=== PATIENT | male | born 1975 | race African-American/Black ===

== ENCOUNTER 2017-09-03 01:14 | Emergency (ER) | payer SELFPAY ==
--- NOTE | 2017-09-03 01:45 | PDOC ---
History of Present Illness - General Chief Complaint: Pain Stated Complaint: PAIN,RT LEG Time Seen by Provider: 09/03/17 01:44 - History of Present Illness Initial Comments: 41 year old recently incarcerated male with PMH of SLE and HTN presenting with 3 weeks of right lower back pain radiating down to his calf. States that he started having some right lower paraspinal and right buttox pain that began to worsen and radiate down the back of his leg when walking for extended periods of time. He came in tonight because his friend saw him limping slightly and told him that "you need to get checked out, man" so it dawned upon him to seek medical care. Denies any recent trauma to the area. Denies fevers, chills, nausea, vomiting, diarrhea, constipation, bowel/ bladder incontinence, or other symptoms. Of note he is intermittently compliant with his lupus and anti-htn medications and states he hasn't seen his physicians since being released from nursing home. States he was drinking EtOH and smoking "cigarettes only" (obviously smells of EtoH and marijuana) prior to his arrival. 09/03/17 02:22 Past History - Past Medical History Allergies/Adverse Reactions: Allergies Allergy/AdvReac Type Severity Reaction Status Date / Time lisinopril Allergy Verified 09/03/17 01:30 Home Medications: Ambulatory Orders NK [No Known Home Medication] 06/29/15 COPD: No HTN: Yes Other medical history: lupus - Suicide/Smoking/Psychosocial Hx Smoking History: Current every day smoker Information on smoking cessation initiated: No Hx Alcohol Use: No Drug/Substance Use Hx: Yes Substance Use Type: Marijuana Review of Systems - Review of Systems Constitutional: No: Chills, Diaphoresis, Fever HEENTM: No: Blurred Vision, Tearing Respiratory: No: Cough, Shortness of Breath, Wheezing Cardiac (ROS): No: Chest Pain, Irregular Heart Rate, Syncope ABD/GI: No: Abdominal Distended, Constipated, Diarrhea, Nausea, Vomiting : No: Dysuria, Discharge, Frequency Musculoskeletal: Yes: Back Pain, Muscle Pain. No: Gout, Joint Pain, Muscle Weakness, Neck Pain Integumentary: No: Lesions, Lumps, Pallor Neurological: No: Headache, Numbness, Paresthesia Psychiatric: No: Anxiety, Depression *Physical Exam - Vital Signs Last Vital Signs Temp Pulse Resp BP Pulse Ox 98 F 76 16 166/100 97 09/03/17 01:25 09/03/17 01:25 09/03/17 01:25 09/03/17 01:25 09/03/17 01:25 - Physical Exam General Appearance: Yes: Nourished, Appropriately Dressed, Alcohol on Breath, Other (Strong marijuana odor.). No: Apparent Distress HEENT: positive: EOMI, JOSE, Normal ENT Inspection, Normal Voice Neck: positive: Trachea midline, Normal Thyroid, Supple. negative: Tender, Rigid Respiratory/Chest: positive: Lungs Clear, Normal Breath Sounds. negative: Chest Tender, Respiratory Distress, Accessory Muscle Use Cardiovascular: positive: Regular Rhythm, Regular Rate Gastrointestinal/Abdominal: positive: Normal Bowel Sounds, Flat, Soft. negative : Tender Musculoskeletal: positive: Normal Inspection, Other (Full range of motion but occasioannly has decreased effort in RLE 2/2 pain. Equal strnegth when encouraged, however.). negative: CVA Tenderness, Muscle Spasm, Vertebral Tenderness Extremity: positive: Normal Capillary Refill, Normal Inspection, Normal Range of Motion. negative: Tender Integumentary: positive: Normal Color, Dry, Warm Neurologic: positive: efficiency analyst II-XII NML intact, Fully Oriented, Alert, Normal Mood/ Affect, Normal Response, Motor Strength 5/5, Other (Able to walk with slight right leg limp. ). negative: Numbness, Sensory Deficit ED Treatment Course - LABORATORY CBC & Chemistry Diagram: 09/03/17 02:30 09/03/17 02:30 Medical Decision Making - Medical Decision Making 41 year old male with history of SLE and HTN (intermittent medication compliance) with non-traumatic RL BP occasionally radiating down the back of his leg in the S1 distribution. He has no signs concerning for acute nerve damage (transection etc), epidural abscess, dissection, or other life threatening pathologies. Although his BP is elevated, he admits to poor medication compliance. Pain improved with toradol 30 IM and roboxin 1 G PO. Discharged with ortho follow up, pcp follow up, and rheum follow up as well as ibuprofen use instructions. 09/03/17 03:01 *DC/Admit/Observation/Transfer Diagnosis at time of Disposition: Back pain with sciatica - Discharge Dispostion Disposition: HOME Condition at time of disposition: Improved Admit: No - Referrals Referrals: [facility] [Provider Group] Binh Yeh MD [Staff Physician] - - Patient Instructions Printed Discharge Instructions: DI for Back Pain With Sciatica Additional Instructions: Your back pain is likely due to a nerve trapped behind the muscles in your back and your butt. Please use Tylenol and ibuprofen for your pain at home. Please follow up with your primary care doctor and provider relations rep for your back pain, hypertension, and lupus as you need to speak about your medication regimen with your doctor. You should also see the orthopedist that we placed on this discharge paperwork (Dr. Yeh). Please return to the ED for any new or worsening symptoms. - Post Discharge Activity
[2017-09-03 01:46] VITALS: BP 166/100; PULSE 76; TEMP 98; BMI 27.3
--- NOTE | 2017-09-03 01:55 | PDOC ---
Attending Attestation - HPI HPI: 09/03/17 02:25 Patient is a 48 year old male with a significant past medical history of Lupus, HTN, who presents to the ED with complaints of sciatic pain that began 3 weeks ago. Patient reports experiencing gradual right sided sciatica pain that he states has been increasing over time. He reports right sided pain begins in his upper right lower extremity and radiates down his leg. Patient does not rate pain on a scale but states the right leg pain is an intense sharp pain that is increased when walking and other movement. Denies chest pain, sob. Denies nausea, vomiting. Denies contact with sick individuals, out of state travelling. Denies fevers, chills. Denies any other symptoms. Allergies: Lisinopril Social history: Current alcohol use. Current smoker. Current marijuana use. Surgical history: None PMD: None <OscarJose talavera - Last Filed: 09/03/17 02:25> - Resident Resident Name: Carroll Arroyo - ED Attending Attestation I have performed the following: I have examined & evaluated the patient, The case was reviewed & discussed with the resident, I agree w/resident's findings & plan, Exceptions are as noted - Physicial Exam PE: 09/07/17 19:18 Physical Exam General Appearance: Yes: Appropriately Dressed. No: Apparent Distress, Intoxicated HEENT: positive: EOMI, JOSE, Normal ENT Inspection, Normal Voice, TMs Normal, Pharynx Normal. negative: Pale Conjunctivae, Photophobia, Scleral Icterus (R), Scleral Icterus (L) Neck: positive: Trachea midline, Normal Thyroid, Supple. negative: Tender, Rigid, Carotid bruit, Stridor, Lymphadenopathy (R), Lymphadenopathy (L), Thyromegaly Respiratory/Chest: positive: Lungs Clear, Normal Breath Sounds. negative: Chest Tender, Respiratory Distress, Accessory Muscle Use, Labored Respiration, RES, Crackles, Rales, Rhonchi, Stridor, Wheezing, Dullness Cardiovascular: positive: Regular Rhythm, Regular Rate, S1, S2. negative: Edema , JVD, Murmur, Bradycardia, Tachycardia Vascular Pulses: Dorsalis-Pedis (R): 2+, Doralis-Pedis (L): 2+ Gastrointestinal/Abdominal: positive: Normal Bowel Sounds, Flat, Soft. negative : Tender, Organomegaly, Pulsatile Mass, Increased Bowel Sounds, Decreased BS, Distended, Guarding, Rebound, Hernia, Hepatomegaly, Spleenomegaly Lymphatic: negative: Adenopathy, Tenderness Musculoskeletal: positive: Normal Inspection. negative: CVA Tenderness, Decreased Range of Motion Extremity: positive: Normal Capillary Refill, Normal Inspection, Normal Range of Motion, Pelvis Stable. negative: Tender, Pedal Edema, Swelling, Erythema Integumentary: positive: Normal Color, Dry, Warm. negative: Cyanotic, Erythema , Jaundice, Rash Neurologic: positive: visual manager II-XII NML intact, Fully Oriented, Alert, Normal Mood/ Affect, Motor Strength 5/5. negative: EOM Palsy, Facial Droop, Sensory Deficit - Medical Decision Making 09/07/17 19:18 Pt treated and released <Kevin Justin - Last Filed: 09/07/17 19:18>
[2017-09-03] MEDS ORDERED: KETOROLAC TROMETHAMINE 30 MG/1 ML VIAL IM ONE (01:59)
[2017-09-03] MEDS ORDERED: KETOROLAC TROMETHAMINE 30 MG/1 ML VIAL ONE (02:29)
[2017-09-03 02:37] LABS: BASO % 0.5 % (0-2.0); EOS % 1.3 % (0-4.5); HEMATOCRIT 41.1 % (35.4-49); HEMOGLOBIN 13.9 GM/dL (11.7-16.9); LYMPH % 31.8 % (8-40); MCH 28.4 pg (25.7-33.7); MCHC 33.9 g/dl (32.0-35.9); MEAN CELL VOLUME 83.9 fl (80-96); MEAN PLT VOLUME 8.7 fl (7.5-11.1); MONO % 6.3 % (3.8-10.2); NEUT % 60.1 % (42.8-82.8); PLATELET COUNT 175 K/MM3 (134-434); RDW 15.9 % (11.9-15.9); WHITE BLOOD COUNT 5.9 K/mm3 (4.0-10.0)
[2017-09-03 03:03] LABS: ALBUMIN 3.6 g/dl (3.4-5.0); ALK PHOS 95 U/L (45-117); ANION GAP 5 (8-16); BILIRUBIN,TOTAL 0.1 mg/dL (0.2-1.0); BLOOD UREA NITROGEN 13 mg/dL (7-18); CALCIUM 8.4 mg/dL (8.5-10.1); CHLORIDE 109 mmol/L (98-107); CO2 26 mmol/L (21-32); CREATININE 0.9 mg/dL (0.7-1.3); GLUCOSE,RANDOM 98 mg/dL (74-106); POTASSIUM 3.6 mmol/L (3.5-5.1); SGOT/AST 15 U/L (15-37); SGPT/ALT 28 U/L (12-78); SODIUM 140 mmol/L (136-145); TOT PROT 7.1 g/dl (6.4-8.2)
[2017-09-03] MEDS ORDERED: METHOCARBAMOL 500 MG TABLET PO ONE (03:10)
[2017-09-03] MEDS ORDERED: METHOCARBAMOL 500 MG TABLET ONE (03:13)
== END 2017-09-03 03:21 | disposition home or self-care (01) ==
LOC: JER 01:14
PROC: 3E0233Z Introduction of Anti-inflammatory into Muscle, Percutaneous Approach (ICD-10-PCS; principal; 2017-09-03)
DX: M54.5 Low back pain (principal); I10 Essential (primary) hypertension; M32.9 Systemic lupus erythematosus, unspecified
CPT/HCPCS: 36415; 80053; 85025; 99281-25

== ENCOUNTER 2017-10-03 08:31 | Emergency (ER) | payer SELFPAY ==
[2017-10-03 08:46] VITALS: BMI 27.0
--- NOTE | 2017-10-03 09:15 | PDOC ---
History of Present Illness - General Chief Complaint: Toothache Stated Complaint: ABSCESS TOOTHACHE Time Seen by Provider: 10/03/17 09:01 History Source: Patient Exam Limitations: No Limitations Past History - Travel Traveled outside of the country in the last 30 days: No Close contact w/someone who was outside of country & ill: No - Past Medical History Allergies/Adverse Reactions: Allergies Allergy/AdvReac Type Severity Reaction Status Date / Time lisinopril Allergy Verified 10/03/17 08:46 Home Medications: Ambulatory Orders NK [No Known Home Medication] 06/29/15 COPD: No HTN: Yes Other medical history: lupus - Suicide/Smoking/Psychosocial Hx Smoking History: Never smoked Hx Alcohol Use: No Drug/Substance Use Hx: No Substance Use Type: None Review of Systems - Review of Systems Able to Perform ROS?: Yes Comments:: 10/03/17 09:15 CONSTITUTIONAL: Absent: fever, chills, diaphoresis, generalized weakness, malaise, loss of appetite HEENT: Absent: rhinorrhea, nasal congestion, throat pain, throat swelling, difficulty swallowing, mouth swelling, ear pain, eye pain, visual Changes CARDIOVASCULAR: Absent: chest pain, loss of consciousness, palpitations, irregular heart rate, peripheral edema RESPIRATORY: Absent: cough, shortness of breath, dyspnea with exertion, orthopnea, wheezing, stridor, hemoptysis GASTROINTESTINAL: Absent: abdominal pain, abdominal distension, nausea, vomiting, diarrhea, constipation, melena, hematochezia GENITOURINARY: Absent: dysuria, frequency, urgency, hesitancy, hematuria, flank pain, genital pain MUSCULOSKELETAL: Absent: myalgia, arthralgia, joint swelling SKIN: Absent: rash, itching, pallor HEMATOLOGIC/IMMUNOLOGIC: Absent: easy bleeding, easy bruising, lymphadenopathy, frequent infections ENDOCRINE: Absent: unexplained weight gain, unexplained weight loss, heat intolerance, cold intolerance NEUROLOGIC: Absent: headache, focal weakness or paresthesias, dizziness, unsteady gait, seizure, mental status changes, bladder or bowel incontinence PSYCHIATRIC: Absent: anxiety, depression, suicidal or homicidal ideation, hallucinations. Is the patient limited [place]an proficient: No *Physical Exam - Vital Signs Last Vital Signs Temp Pulse Resp BP Pulse Ox 98.3 F 95 H 18 128/75 99 10/03/17 08:42 10/03/17 08:42 10/03/17 08:42 10/03/17 08:42 10/03/17 08:42 - Physical Exam Comments: 10/03/17 09:15 GENERAL: Well developed, well nourished. Awake and alert. No acute distress. HEENT: Normocephalic, atraumatic. PERRLA, EOMI. No conjunctival pallor. Sclera are non- icteric. Moist mucous membranes. Oropharynx is clear. NECK: Supple. Full ROM. No JVD. Carotid pulses 2+ and symmetric, without bruits. No thyromegaly. No lymphadenopathy. CARDIOVASCULAR: Regular rate and rhythm. No murmurs, rubs, or gallops. Distal pulses are 2+ and symmetric. PULMONARY: No evidence of respiratory distress. Lungs clear to auscultation bilaterally. No wheezing, rales or rhonchi. ABDOMINAL: Soft. Non-tender. Non-distended. No rebound or guarding. No organomegaly. Normoactive bowel sounds. MUSCULOSKELETAL Normal range of motion at all joints. No bony deformities or tenderness. No CVA tenderness. EXTREMITIES: No cyanosis. No clubbing. No edema. No calf tenderness. SKIN: Warm and dry. Normal capillary refill. No rashes. No jaundice. NEUROLOGICAL: Alert, awake, appropriate. Cranial nerves 2-12 intact. No deficits to light touch and temperature in face, upper extremities and lower extremities. No motor deficits in the in face, upper extremities and lower extremities. Normoreflexic in the upper and lower extremities. Normal speech. Toes are down- going bilaterally. Gait is normal without ataxia. PSYCHIATRIC: Cooperative. Good eye contact. Appropriate mood and affect.
--- NOTE | 2017-10-03 10:11 | PDOC ---
History of Present Illness - General Chief Complaint: Toothache Stated Complaint: ABSCESS TOOTHACHE Time Seen by Provider: 10/03/17 09:01 History Source: Patient Exam Limitations: No Limitations - History of Present Illness Initial Comments: CHIEF COMPLAINT: 41 y/o afebrile male with PMH SLE and HTN c/o right lower toothache x a few days. HISTORY OF PRESENT ILLNESS: The patient does not have a dentist. He denies PIEDRA , fever, cough, difficulty swallowing and all other symptoms. he was drinking alcohol last night and is sleepy in the ER. He is ambulatory. Vital signs on arrival are within normal limits. REVIEW OF SYSTEMS: GENERAL/CONSTITUTIONAL: No fever/chills. No weakness. No weight change. HEAD, EYES, EARS, NOSE AND THROAT: +toothache. No change in vision. No ear pain or discharge. No sore throat. CARDIOVASCULAR: No chest pain or shortness of breath. RESPIRATORY: No cough, wheezing, or hemoptysis. GASTROINTESTINAL: No abd pain, nausea, vomiting, diarrhea. GENITOURINARY: No dysuria, frequency, or change in urination. MUSCULOSKELETAL: No joint or muscle swelling or pain. No neck or back pain. SKIN: No rash or easy bruising. NEUROLOGIC: No headache, vertigo, loss of consciousness, or loss of sensation. PHYSICAL EXAM: GENERAL: The patient is awake, drowsy, in NAD or obvious discomfort. HEAD: Normal with no signs of trauma. ENT: pinpoint pupils, EOMI. Cracked 1st molar right bottom mouth that is TTP with minimal surrounding gingival erythema and edema. Tender left anterior cervical lymphadenopathy. No soft/hard palate deformities. Uvula midline. EXTREMITIES: Normal range of motion, no edema. NEUROLOGICAL: Normal speech, normal gait. CN II-XII grossly intact. SKIN: Warm, dry, normal turgor, no rashes or lesions noted. Past History - Past Medical History Allergies/Adverse Reactions: Allergies Allergy/AdvReac Type Severity Reaction Status Date / Time lisinopril Allergy Verified 10/03/17 08:46 Home Medications: Ambulatory Orders Amox-Tr/K Cl [Augmentin - 875Mg Tablet] 1 tab PO BID #14 tablet 10/03/17 Amox-Tr/K Cl [Augmentin - 875Mg Tablet] 1 tab PO BID #14 tablet 10/03/17 Ibuprofen 600 mg PO TID #15 tablet 10/03/17 Ibuprofen 600 mg PO TID #15 tablet 10/03/17 COPD: No HTN: Yes Other medical history: lupus - Suicide/Smoking/Psychosocial Hx Smoking History: Never smoked Hx Alcohol Use: No Drug/Substance Use Hx: No Substance Use Type: None *Physical Exam - Vital Signs Last Vital Signs Temp Pulse Resp BP Pulse Ox 98.3 F 95 H 18 128/75 99 10/03/17 08:42 10/03/17 08:42 10/03/17 08:42 10/03/17 08:42 10/03/17 08:42 Medical Decision Making - Medical Decision Making A/P: 41 y/o male with dental cavity with broken tooth that needs extraction. Plan is as follows: 1. PO augmentin 2. IM toradol Will discharge to home with rx for augmentin and ibuprofen. Instructed him to follow up at dental clinic tomorrow and to avoid drinking alcohol while taking medication. Instructed him to return to the ER with any worsening or concerning symptoms. The patient verbalizes understanding of all instructions, has no further questions and is awaiting discharge. *DC/Admit/Observation/Transfer Diagnosis at time of Disposition: Toothache, Dental caries - Discharge Dispostion Disposition: HOME Condition at time of disposition: Stable - Prescriptions Prescriptions: Amox-Tr/K Cl [Augmentin - 875Mg Tablet] 1 tab PO BID #14 tablet Amox-Tr/K Cl [Augmentin - 875Mg Tablet] 1 tab PO BID #14 tablet Ibuprofen 600 mg PO TID #15 tablet Ibuprofen 600 mg PO TID #15 tablet - Referrals - Patient Instructions Printed Discharge Instructions: DI for Tooth Abscess, DI for Dental Pain Additional Instructions: Discharge Instructions: -You have a dental infection -A prescription for antibiotics and pain medication has been sent to your pharmacy; please DO NOT drink alcohol while taking these medications. -Please call the following emergency dental office for an appointment; they are open today: [facility] in [place], [place] Address: [address] [place] [address] -Return to the ER with any worsening or concerning symptoms. - Post Discharge Activity
[2017-10-03] MEDS ORDERED: KETOROLAC TROMETHAMINE 60 MG/2 ML VIAL IM ONE (11:15)
[2017-10-03] MEDS ORDERED: AMOX TR/POT CLAV 875MG/125MG TABLETS (FP) PO ONE (11:15)
[2017-10-03] MEDS ORDERED: KETOROLAC TROMETHAMINE 60 MG/2 ML VIAL ONE (11:17)
[2017-10-03] MEDS ORDERED: AMOX TR/POT CLAV 875MG/125MG TABLETS (FP) ONE (11:20)
[2017-10-03 11:26] VITALS: BP 139/79; PULSE 89; TEMP 98
== END 2017-10-03 11:43 | disposition home or self-care (01) ==
LOC: JERFT 08:31 → JER 08:31
PROC: 3E0233Z Introduction of Anti-inflammatory into Muscle, Percutaneous Approach (ICD-10-PCS; principal; 2017-10-03)
DX: K02.9 Dental caries, unspecified (principal); I10 Essential (primary) hypertension; M32.9 Systemic lupus erythematosus, unspecified
CPT/HCPCS: 99282-25

== ENCOUNTER 2018-02-15 05:30 | Emergency (ER) | payer SELFPAY ==
[2018-02-15 06:49] VITALS: TEMP 97.8; BMI 22.1
[2018-02-15] MEDS ORDERED: ONDANSETRON 4 MG/2 ML VIAL IVPUSH ONE (07:43)
[2018-02-15] MEDS ORDERED: SODIUM CHLORIDE 1,000 ML IV STA (07:43)
[2018-02-15] MEDS ORDERED: FAMOTIDINE 20 MG/50 ML IVPB 50 ML IVPB ONE (07:43)
[2018-02-15] MEDS ORDERED: MAG HYDROX/AL HYDROX/SIMETH 30 ML UNIT-DOSE CUP PO ONE (07:45)
[2018-02-15] MEDS ORDERED: ONDANSETRON 4 MG/2 ML VIAL ONE (08:25)
[2018-02-15 08:40] LABS: URINE APPEARANCE CLEAR; URINE BILIRUBIN NEGATIVE (<2.0 mg/dL); URINE COLOR YELLOW; URINE GLUCOSE (UA) NEGATIVE (NEGATIVE); URINE KETONE TRACE (NEGATIVE); URINE LEUK ESTERASE NEGATIVE (NEGATIVE); URINE NITRITE NEGATIVE (NEGATIVE); URINE PROTEIN NEGATIVE (NEGATIVE); URINE UROBILINOGEN NEGATIVE mg/dL (0.2-1.0)
[2018-02-15] MEDS ORDERED: RANITIDINE HCL 150 MG TABLET (FP) PO ONE (08:40)
[2018-02-15] MEDS ORDERED: ONDANSETRON *ODT* 4 MG TABLET SL ONE (08:40)
--- NOTE | 2018-02-15 08:40 | PDOC ---
History of Present Illness - General Chief Complaint: Constipation Stated Complaint: CONSTIPATION Time Seen by Provider: 02/15/18 06:28 History Source: Patient Exam Limitations: No Limitations - History of Present Illness Initial Comments: 02/15/18 08:34 Patient is a 42M with history of lupus, HTN, L inguinal hernia repair here today complaining of constipation for the past three weeks. Patient is complaining of associated epigastric abdominal pain for the past week. He states that he came in today because he couldn't take the pain anymore. Patient endorses being able to move his bowels, but states that they are smaller than usual. Patient denies nausea, vomiting, fevers, chills, but endorses decreased PO intake secondary to his discomfort. His abdominal pain is described as a burning that worsened with laying down. Patient states that he has tried several over the counter remedies for constipation with no apparent success. Past History - Past Medical History Allergies/Adverse Reactions: Allergies Allergy/AdvReac Type Severity Reaction Status Date / Time lisinopril Allergy Verified 02/15/18 06:49 Home Medications: Ambulatory Orders Phenobarb/Hyoscy/Atropine/Scop [ Tablet] 16.2 mg PO BID #6 tablet COPD: No HTN: Yes - Suicide/Smoking/Psychosocial Hx Smoking History: Never smoked Have you smoked in the past 12 months: No Information on smoking cessation initiated: No Hx Alcohol Use: No Drug/Substance Use Hx: No Substance Use Type: None Review of Systems - Review of Systems Comments:: 02/15/18 08:42 GENERAL/CONSTITUTIONAL: No fever or chills. No weakness. HEAD, EYES, EARS, NOSE AND THROAT: No change in vision. No sore throat. CARDIOVASCULAR: No chest pain or shortness of breath RESPIRATORY: No cough, wheezing, or hemoptysis. GASTROINTESTINAL: No nausea, vomiting, diarrhea +constipation. GENITOURINARY: No dysuria, frequency, or change in urination. MUSCULOSKELETAL: No joint or muscle swelling or pain. No neck or back pain. SKIN: No rash NEUROLOGIC: No headache, vertigo, loss of consciousness, or change in strength/ sensation. ENDOCRINE: No increased thirst. No abnormal weight change HEMATOLOGIC/LYMPHATIC: No anemia, easy bleeding, or history of blood clots. ALLERGIC/IMMUNOLOGIC: No hives or skin allergy. *Physical Exam - Vital Signs Last Vital Signs Temp Pulse Resp BP Pulse Ox 97.8 F 90 18 146/101 H 98 02/15/18 05:45 02/15/18 05:45 02/15/18 05:45 02/15/18 05:45 02/15/18 05:45 - Physical Exam Comments: 02/15/18 08:43 GENERAL: Awake, alert, and fully oriented, in no acute distress HEAD: No signs of trauma, normocephalic, atraumatic EYES: PERRLA, EOMI, sclera anicteric, conjunctiva clear ENT: Auricles normal inspection, hearing grossly normal, nares patent, oropharynx clear without exudates. Moist mucosa NECK: Normal ROM, supple, no lymphadenopathy, JVD, or masses LUNGS: No distress, speaks full sentences, clear to auscultation bilaterally HEART: Regular rate and rhythm, normal S1 and S2, no murmurs, rubs or gallops, peripheral pulses normal and equal bilaterally. ABDOMEN: Soft, +LUQ tenderness, normoactive bowel sounds. No guarding, no rebound. No masses RECTAL: Normal tone, no stool impaction, no masses EXTREMITIES: Normal inspection, Normal range of motion, no edema. No clubbing or cyanosis. NEUROLOGICAL: Cranial nerves II through XII grossly intact. Normal speech, normal gait, no focal sensorimotor deficits SKIN: Warm, Dry, normal turgor, no rashes or lesions noted. ED Treatment Course - LABORATORY CBC & Chemistry Diagram: 02/15/18 08:15 02/15/18 08:15 - RADIOLOGY Radiology Studies Ordered: Category Date Time Status ABDOMEN FLAT & UPRIGHT [RAD] Stat Radiology 02/15/18 07:45 Ordered Medical Decision Making - Medical Decision Making 02/15/18 08:44 Patient is 42M with history of HTN, L inguinal repair, lupus here today with epigastric abdominal pain, likely secondary to over the counter medications patient took for constipation. Rectal exam negative for stool impaction, patient taking no narcotics, no masses on exam. DDx includes, but is not limited to: gastritis, pancreatitis, constipation, uti. Will do cbc, cmp, lipase , ua. Will treat with fluids. Will treat with zofran, maalox, ranitidine. UA clear, CMP, CBC normal. After much discussion, patient setup with out patient services. Patient reports limited improvement and asking for percocet. Discharged with instructions to take zantac and maalox. Given return precautions. *DC/Admit/Observation/Transfer Diagnosis at time of Disposition: Gastritis - Discharge Dispostion Disposition: HOME Condition at time of disposition: Good Decision to Admit order: No - Prescriptions Prescriptions: Phenobarb/Hyoscy/Atropine/Scop [ Tablet] 16.2 mg PO BID #6 tablet - Referrals Referrals: Viktor Mckeon MD [Staff Physician] - Rodrigue Granados MD [Staff Physician] - - Patient Instructions Printed Discharge Instructions: DI for Gastritis Additional Instructions: Please follow up with the primary care doctor appointment made for you. Their phone number and address is below. For GI follow up, Dr Granados is available locally, but he may not be able to take uninsured patients. Further follow up may be available at [facility] or [facility]. Please return to the ED if you have any new, worsening or concerning symptoms, especially fever, blood in stool or blood in vomit. - Post Discharge Activity Forms/Work/School Notes: Back to Work
[2018-02-15] MEDS ORDERED: RANITIDINE HCL 150 MG TABLET (FP) ONE (08:49)
[2018-02-15] MEDS ORDERED: MAG HYDROX/AL HYDROX/SIMETH 30 ML UNIT-DOSE CUP ONE (08:50)
[2018-02-15] MEDS ORDERED: ONDANSETRON *ODT* 4 MG TABLET ONE (08:50)
[2018-02-15 09:06] LABS: BASO % 0.5 % (0-2.0); EOS % 1.1 % (0-4.5); HEMATOCRIT 48.8 % (35.4-49); HEMOGLOBIN 15.8 GM/dL (11.7-16.9); LYMPH % 29.8 % (8-40); MCH 28.2 pg (25.7-33.7); MCHC 32.3 g/dl (32.0-35.9); MEAN CELL VOLUME 87.3 fl (80-96); MEAN PLT VOLUME 9.3 fl (7.5-11.1); MONO % 9.7 % (3.8-10.2); NEUT % 58.9 % (42.8-82.8); PLATELET COUNT 184 K/MM3 (134-434); RBC 5.59 M/mm3 (4.00-5.60); RDW 14.8 % (11.9-15.9); WHITE BLOOD COUNT 5.8 K/mm3 (4.0-10.0)
[2018-02-15 09:24] LABS: ALBUMIN 3.9 g/dl (3.4-5.0); ALK PHOS 91 U/L (45-117); ANION GAP 7 MMOL/L (8-16); BILIRUBIN,TOTAL 0.7 mg/dL (0.2-1); BLOOD UREA NITROGEN 9 mg/dL (7-18); CALCIUM 10.3 mg/dL (8.5-10.1); CHLORIDE 103 mmol/L (98-107); CO2 28 mmol/L (21-32); GLUCOSE,RANDOM 90 mg/dL (74-106); LIPASE 174 U/L (73-393); POTASSIUM 4.6 mmol/L (3.5-5.1); SGOT/AST 12 U/L (15-37); SGPT/ALT 20 U/L (13-61); SODIUM 138 mmol/L (136-145); TOT PROT 7.8 g/dl (6.4-8.2)
--- NOTE | 2018-02-15 09:53 | PDOC ---
Attending Attestation - Resident Resident Name: JomarMeir betts - ED Attending Attestation I have performed the following: I have examined & evaluated the patient, The case was reviewed & discussed with the resident, I agree w/resident's findings & plan, Exceptions are as noted - HPI HPI: 02/15/18 10:02 Agree with residents HPI - Physicial Exam PE: 02/15/18 10:03 Agree with residents PE - Medical Decision Making 02/15/18 10:02 42 years old lupus hypertension presents with 3 week history of constipation left upper quadrant pain. Pain is worse with meals increases decreased by mouth appetite intermittent comes and goes has taken laxatives with no relief. No Chest pain, no SOB On physical exam patient with benign abdominal examination very mild left upper quadrant tenderness to palpation no lower abdominal tenderness to palpation. No distention. On rectal examination patient is not impacted KUB demonstrates no evidence of obstruction labs are unremarkable is no elevated white blood cell count patient is not anemic. Patient given GI cocktail still complaining of subjective discomfort At this point differential diagnosis includes dyspepsia underlying peptic ulcer disease less likely constipation less likely lupus flare We have arranged for the patient to follow up in our clinic we have also advised that he follows up with gastroenterology within 2-3 days. He was given a prescription for until he can follow up the importance of following up to rule out other pathology such as possible cancer has been discussed at length with patient Findings, the need for follow-up and strict return instructions discussed with patient.
[2018-02-15 10:24] VITALS: BP 140/92; PULSE 74
== END 2018-02-15 10:10 | disposition home or self-care (01) ==
LOC: JER 05:30
DX: K29.70 Gastritis, unspecified, without bleeding (principal); I10 Essential (primary) hypertension; Z87.39 Personal history of other diseases of the musculoskeletal system and connective tissue
CPT/HCPCS: 36415; 74019-TC-FY; 80053; 81003; 83690; 85025; 99282-25; Q0162

== ENCOUNTER 2018-03-07 22:32 | Emergency (ER) | payer SELFPAY ==
[2018-03-07 22:38] VITALS: BP 152/85; PULSE 71; TEMP 97.7; BMI 23.6
[2018-03-08] MEDS ORDERED: FAMOTIDINE 20 MG/50 ML IVPB 20 MG/50 ML MG IVPB ONE ×2 (01:07→01:19)
[2018-03-08] MEDS ORDERED: ONDANSETRON 4 MG/2 ML VIAL IVPUSH ONE (01:07)
[2018-03-08] MEDS ORDERED: SODIUM CHLORIDE 1,000 ML IV STA (01:07)
--- NOTE | 2018-03-08 01:18 | PDOC ---
History of Present Illness - General Chief Complaint: Pain Stated Complaint: ABDOMINAL PAIN Time Seen by Provider: 03/07/18 23:26 - History of Present Illness Initial Comments: 03/08/18 01:16 42-year-old male with no significant past medical or surgical history presents emergency Department with 1 month of epigastric pain. Patient reports pain is intermittent, worse after he eats and is not associated with any nausea, vomiting, diarrhea, fevers or chills. Denies urinary symptoms. Patient was evaluated in the emergency room department for the same pain a few weeks ago, had labs and x-ray which showed constipation. Patient has not followed up with a primary care doctor since that visit. Last bowel movement was 2 days ago. He is passing flatus. Denies any dark or bloody stools. Denies any alcohol or drug use. Tried Metamucil for his constipation with no relief. Patient noted to curse at the [place] when she was evaluating him, stated he just wanted to sleep. Denies recent travel. Past History - Past Medical History Allergies/Adverse Reactions: Allergies Allergy/AdvReac Type Severity Reaction Status Date / Time lisinopril Allergy Verified 03/07/18 22:35 Home Medications: Ambulatory Orders Famotidine [Pepcid] 20 mg PO BID #28 tablet 03/08/18 COPD: No HTN: Yes Other medical history: lupus - Suicide/Smoking/Psychosocial Hx Smoking History: Current every day smoker Have you smoked in the past 12 months: No Number of Cigarettes Smoked Daily: 20 Information on smoking cessation initiated: No Hx Alcohol Use: No Drug/Substance Use Hx: No Substance Use Type: None Review of Systems - Review of Systems Comments:: 03/08/18 01:19 GENERAL/CONSTITUTIONAL: No fever or chills. No weakness. HEAD, EYES, EARS, NOSE AND THROAT: No change in vision. No ear pain or discharge. No sore throat. GASTROINTESTINAL: No nausea, vomiting, diarrhea. +constipation +abd pain GENITOURINARY: No dysuria, frequency, or change in urination. CARDIOVASCULAR: No chest pain or shortness of breath. RESPIRATORY: No cough, wheezing, or hemoptysis. MUSCULOSKELETAL: No joint or muscle swelling or pain. No neck or back pain. SKIN: No rash NEUROLOGIC: No headache, vertigo, loss of consciousness, or change in strength/ sensation. ENDOCRINE: No increased thirst. No abnormal weight change. HEMATOLOGIC/LYMPHATIC: No anemia, easy bleeding, or history of blood clots. ALLERGIC/IMMUNOLOGIC: No hives or skin allergy. *Physical Exam - Vital Signs Last Vital Signs Temp Pulse Resp BP Pulse Ox 97.7 F 71 18 152/85 100 03/07/18 22:35 03/07/18 22:35 03/07/18 22:35 03/07/18 22:35 03/07/18 22:35 - Physical Exam Comments: 03/08/18 01:19 GENERAL: Awake, alert, and fully oriented, in no acute distress. Sleeping in stretcher. HEAD: No signs of trauma EYES: PERRLA, EOMI, sclera anicteric, conjunctiva clear ENT: Auricles normal inspection, hearing grossly normal, nares patent, oropharynx clear without exudates. Moist mucosa NECK: Normal ROM, supple, no lymphadenopathy, JVD, or masses LUNGS: Breath sounds equal, clear to auscultation bilaterally. No wheezes, and no crackles HEART: Regular rate and rhythm, normal S1 and S2, no murmurs, rubs or gallops ABDOMEN: Soft, +mild epigastric ttp, neg burnett's sign. Normoactive bowel sounds. No guarding, no rebound. No masses EXTREMITIES: Normal range of motion, no edema. No clubbing or cyanosis. No cords, erythema, or tenderness NEUROLOGICAL: Normal speech, cranial nerves intact, negative pronator drift, 5/ 5 strength in all 4 extremities, normal sensation to light touch in all 4 extremities, normal cerebellar exam, normal gait, normal reflexes and tone SKIN: Warm, Dry, normal turgor, no rashes or lesions noted. ED Treatment Course - LABORATORY CBC & Chemistry Diagram: 03/08/18 01:05 03/08/18 01:05 Medical Decision Making - Medical Decision Making 03/08/18 01:20 42yo M presents to the ED with 1 month of epigastric abd pain. Pt well appearing. Vitals wnl. +Mid epigastric ttp. DDx includes gastritis vs PUD vs constipation. Plan: -labs -pepcid/fluids/tylenol/zofran -reassess 03/08/18 03:53 Labs wnl Pt has been sleeping during entire ED stay, comfortable and well appearing Tolerating PO Stable for DC home I discussed the physical exam findings, ancillary test results and final diagnoses with the patient. I answered all of the patient's questions. The patient was satisfied with the care received and felt comfortable with the discharge plan and treatment plan. The patient will call their primary care physician within 24 hours to arrange follow-up and will return to the Emergency Department with any new, persistent or worsening symptoms. *DC/Admit/Observation/Transfer Diagnosis at time of Disposition: Abdominal pain - Discharge Dispostion Disposition: HOME Condition at time of disposition: Stable Decision to Admit order: No - Prescriptions Prescriptions: Famotidine [Pepcid] 20 mg PO BID #28 tablet - Referrals - Patient Instructions Printed Discharge Instructions: DI for Epigastric Pain Additional Instructions: Please follow up with a primary care doctor within 1 week for your symptoms. It is important to follow up with a primary care doctor for a complete evaluation of your abdominal pain. Take pepcid as needed for pain. Return to the emergency department if you have any new, worsening, or concerning symptoms. - Post Discharge Activity - Attestations Physician Attestion: 03/08/18 03:56 I, Dr. Tye Rich MD, attest that this document has been prepared under my direction and personally reviewed by me in its entirety. I further attest, that it accurately reflects all work, treatment, procedures and medical decision -making performed by me.
[2018-03-08] MEDS ORDERED: ONDANSETRON 4 MG/2 ML VIAL ONE (01:19)
[2018-03-08 01:24] LABS: BASO % 0.3 % (0-2.0); EOS % 2.4 % (0-4.5); HEMATOCRIT 41.9 % (35.4-49); HEMOGLOBIN 13.6 GM/dL (11.7-16.9); LYMPH % 27.2 % (8-40); MCH 27.9 pg (25.7-33.7); MCHC 32.5 g/dl (32.0-35.9); MEAN CELL VOLUME 85.9 fl (80-96); MEAN PLT VOLUME 9.1 fl (7.5-11.1); MONO % 9.4 % (3.8-10.2); NEUT % 60.7 % (42.8-82.8); PLATELET COUNT 179 K/MM3 (134-434); RBC 4.88 M/mm3 (4.00-5.60); WHITE BLOOD COUNT 5.4 K/mm3 (4.0-10.0)
[2018-03-08 02:05] LABS: ALBUMIN 3.3 g/dl (3.4-5.0); ALK PHOS 76 U/L (45-117); ANION GAP 5 MMOL/L (8-16); BILIRUBIN,TOTAL 0.4 mg/dL (0.2-1); BLOOD UREA NITROGEN 12 mg/dL (7-18); CHLORIDE 107 mmol/L (98-107); CO2 26 mmol/L (21-32); GLUCOSE,RANDOM 99 mg/dL (74-106); LIPASE 295 U/L (73-393); SGOT/AST 22 U/L (15-37); SGPT/ALT 20 U/L (13-61); SODIUM 138 mmol/L (136-145); TOT PROT 6.9 g/dl (6.4-8.2)
[2018-03-08 02:11] LABS: POTASSIUM 5.2 mmol/L (3.5-5.1)
[2018-03-08] MEDS ORDERED: KETOROLAC TROMETHAMINE 30 MG/1 ML VIAL ONE (04:06)
[2018-03-08] MEDS ORDERED: KETOROLAC TROMETHAMINE 15 MG/ML VIAL IM ONE (04:27)
== END 2018-03-08 04:16 | disposition home or self-care (01) ==
LOC: JER 22:32
PROC: 3E033GC Introduction of Other Therapeutic Substance into Peripheral Vein, Percutaneous Approach (ICD-10-PCS; principal; 2018-03-07)
PROC: 3E033GC Introduction of Other Therapeutic Substance into Peripheral Vein, Percutaneous Approach (ICD-10-PCS; 2018-03-07)
PROC: 3E0233Z Introduction of Anti-inflammatory into Muscle, Percutaneous Approach (ICD-10-PCS; 2018-03-07)
DX: R10.13 Epigastric pain (principal); I10 Essential (primary) hypertension; Z87.39 Personal history of other diseases of the musculoskeletal system and connective tissue
CPT/HCPCS: 36415; 80053; 83690; 85025; 99282-25; J7030

== ENCOUNTER 2020-03-27 02:02 | Observation (INO) | payer OTHER ==
[2020-03-27 02:26] VITALS: BMI 29.5
[2020-03-27] MEDS ORDERED: METOCLOPRAMIDE HCL INJECTION 10 MG/2 ML VIAL IVPB ONE (02:42)
[2020-03-27] MEDS ORDERED: SODIUM CHLORIDE 1,000 ML IV STA (02:42)
[2020-03-27] MEDS ORDERED: METOCLOPRAMIDE HCL INJECTION 10 MG/2 ML VIAL ONE (02:52)
[2020-03-27] MEDS ORDERED: morphine CARPU-JECT 4 MG/1 ML DISP.SYRIN IVPUSH ONE (03:29)
[2020-03-27] MEDS ORDERED: morphine SULFATE 4 MG/ML VIAL ONE (03:30)
[2020-03-27 03:38] LABS: EOS % 3.8 % (0-4.5); HEMATOCRIT 44.9 % (35.4-49); HEMOGLOBIN 14.7 GM/dL (11.7-16.9); LYMPH % 41.3 % (8-40); MCH 27.7 pg (25.7-33.7); MCHC 32.7 g/dl (32.0-35.9); MEAN CELL VOLUME 84.7 fl (80-96); MEAN PLT VOLUME 9.4 fl (7.5-11.1); MONO % 8.5 % (3.8-10.2); NEUT % 45.4 % (42.8-82.8); PLATELET COUNT 168 K/MM3 (134-434); RDW 17.1 % (11.9-15.9); WHITE BLOOD COUNT 5.4 K/mm3 (4.0-10.0)
[2020-03-27 04:01] LABS: POTASSIUM 4.7 mmol/L (3.5-5.1)
[2020-03-27 04:03] LABS: ALBUMIN 3.7 g/dl (3.4-5.0); BLOOD UREA NITROGEN 11.7 mg/dL (7-18); MAGNESIUM 2.1 mg/dL (1.8-2.4)
[2020-03-27 04:06] LABS: CREATININE 0.9 mg/dL (0.55-1.3)
[2020-03-27 04:08] LABS: BILIRUBIN,TOTAL 0.7 mg/dL (0.2-1); TOT PROT 7.7 g/dl (6.4-8.2)
[2020-03-27] MEDS ORDERED: ACETAMINOPHEN 325 MG TABLET (FP) PO PRN (05:31)
[2020-03-27] MEDS ORDERED: ACETAMINOPHEN 325 MG TABLET (FP) ONE (06:16)
[2020-03-27] MEDS: INSULIN SLIDING SCALE (NOVOLOG) 1 VIAL SQ SCH ×2 (08:07→11:26)
[2020-03-27] MEDS ORDERED: ACETAMINOPHEN INJECTION 100 ML IVPB ONE ×2 (09:23→09:26)
[2020-03-27] MEDS ORDERED: ENOXAPARIN NA (PORCINE) 40 MG/0.4 ML DISP.SYRIN SQ ONE (09:26)
[2020-03-27] MEDS ORDERED: amLODIPine BESYLATE 5 MG TABLET (FP) PO ONE (09:37)
[2020-03-27] MEDS ORDERED: LACTATED RINGERS SOLUTION 1,000 ML/1,000 ML INFUS.BAG IV SCH (09:45)
[2020-03-27] MEDS ORDERED: amLODIPine BESYLATE 5 MG TABLET (FP) ONE (09:47)
[2020-03-27] MEDS ORDERED: PANTOPRAZOLE 40 MG TABLET PO SCH (10:00)
[2020-03-27] MEDS ORDERED: ENOXAPARIN NA (PORCINE) 40 MG/0.4 ML DISP.SYRIN SQ SCH (10:00)
[2020-03-27] MEDS ORDERED: PANTOPRAZOLE SODIUM 40 MG VIAL IVPUSH SCH (10:00)
[2020-03-27 11:05] LABS: BASO % 0.4 % (0-2.0); EOS % 3.2 % (0-4.5); HEMATOCRIT 47.2 % (35.4-49); HEMOGLOBIN 15.2 GM/dL (11.7-16.9); LYMPH % 33.4 % (8-40); MCH 27.3 pg (25.7-33.7); MCHC 32.2 g/dl (32.0-35.9); MEAN CELL VOLUME 84.9 fl (80-96); MEAN PLT VOLUME 9.4 fl (7.5-11.1); MONO % 8.9 % (3.8-10.2); NEUT % 54.1 % (42.8-82.8); PLATELET COUNT 184 K/MM3 (134-434); RBC 5.56 M/mm3 (4.00-5.60); RDW 17.5 % (11.9-15.9); WHITE BLOOD COUNT 5.7 K/mm3 (4.0-10.0)
[2020-03-27 11:08] LABS: CHLORIDE 106 mmol/L (98-107); POTASSIUM 3.6 mmol/L (3.5-5.1); SODIUM 138 mmol/L (136-145)
[2020-03-27 11:13] VITALS: BP 144/89; PULSE 82; TEMP 97.2
[2020-03-27 11:13] LABS: ALBUMIN 3.9 g/dl (3.4-5.0); ANION GAP 8 MMOL/L (8-16); CALCIUM 9.3 mg/dL (8.5-10.1); CO2 24 mmol/L (21-32)
[2020-03-27 11:14] LABS: BLOOD UREA NITROGEN 8.6 mg/dL (7-18); GLUCOSE,RANDOM 80 mg/dL (74-106)
[2020-03-27 11:16] LABS: CHOLESTEROL 301 mg/dL (50-200); CREATININE 0.9 mg/dL (0.55-1.3); PHOSPHOROUS 2.6 mg/dL (2.5-4.9); SGOT/AST 28 U/L (15-37); SGPT/ALT 43 U/L (13-61)
[2020-03-27 11:17] LABS: BILIRUBIN,TOTAL 1.2 mg/dL (0.2-1); LDL CHOLESTEROL (ONLY SJRH) 218 mg/dL (5-100); TRIGLYCERIDES 115 mg/dL (0-150)
[2020-03-27 11:18] LABS: ALK PHOS 97 U/L (45-117); TOT PROT 7.6 g/dl (6.4-8.2)
[2020-03-27 11:19] LABS: HDL CHOLESTEROL 51 mg/dL (40-60)
[2020-03-27] MEDS ORDERED: INSULIN SLIDING SCALE (NOVOLOG) 1 VIAL SQ SCH (11:35)
[2020-03-27] MEDS ORDERED: ACETAMINOPHEN 1000 MG/100 ML VIAL (NON FORMULARY) IVPB ONE (11:39)
[2020-03-27] MEDS ORDERED: ASPIRIN COATED 81 MG TABLET.EC PO SCH (11:45)
[2020-03-27] MEDS ORDERED: ASPIRIN COATED 81 MG TABLET.EC ONE (11:46)
[2020-03-27] MEDS ORDERED: MAG HYDROX/AL HYDROX/SIMETH 30 ML UNIT-DOSE CUP PO SCH (18:00)
[2020-03-27] MEDS ORDERED: ATORVASTATIN CA 80 MG TABLET (FP) PO SCH (22:00)
== END 2020-03-27 13:00 | disposition left against medical advice (07) ==
LOC: JER 02:02 → JERBED 04:48
PROVIDERS: ADMIT Internal Medicine; ATTEND Internal Medicine
PROC: 3E023GC Introduction of Other Therapeutic Substance into Muscle, Percutaneous Approach (ICD-10-PCS; principal; 2020-03-27)
PROC: 3E013VG Introduction of Insulin into Subcutaneous Tissue, Percutaneous Approach (ICD-10-PCS; 2020-03-27)
PROC: 3E0337Z Introduction of Electrolytic and Water Balance Substance into Peripheral Vein, Percutaneous Approach (ICD-10-PCS; 2020-03-27)
PROC: 3E033NZ Introduction of Analgesics, Hypnotics, Sedatives into Peripheral Vein, Percutaneous Approach (ICD-10-PCS; 2020-03-27)
DX: R10.13 Epigastric pain (principal); F10.10 Alcohol abuse, uncomplicated; K85.90 Acute pancreatitis without necrosis or infection, unspecified; J45.909 Unspecified asthma, uncomplicated; M32.9 Systemic lupus erythematosus, unspecified; I10 Essential (primary) hypertension; F12.10 Cannabis abuse, uncomplicated; E78.5 Hyperlipidemia, unspecified; K27.9 Peptic ulcer, site unspecified, unspecified as acute or chronic, without hemorrhage or perforation; A69.8 Other specified spirochetal infections; R94.31 Abnormal electrocardiogram [ECG] [EKG]; Z29.9 Encounter for prophylactic measures, unspecified; Z88.8 Allergy status to other drugs, medicaments and biological substances; F17.210 Nicotine dependence, cigarettes, uncomplicated
CPT/HCPCS: 36415; 71046-TC-FY; 74018-TC-FY; 80053; 80061; 82550; 82553; 82962; 83036; 83690; 83721; 83735; 84100; 84443; 84484; 85025; 93005; 93010; 96361; 96372; 96374; 96375; 99285-25; C9803; G0378; J0131; U0003

== ENCOUNTER 2020-03-28 00:25 | Inpatient (IN) | payer OTHER ==
[2020-03-28 00:49] VITALS: BMI 29.5
[2020-03-28] MEDS ORDERED: SODIUM CHLORIDE 1,000 ML IV STA (02:03)
[2020-03-28] MEDS ORDERED: ACETAMINOPHEN 1000 MG/100 ML VIAL (NON FORMULARY) IVPB ONE ×2 (02:03→16:10)
[2020-03-28] MEDS ORDERED: ACETAMINOPHEN INJECTION 100 ML IVPB ONE ×2 (03:06→16:16)
[2020-03-28 03:18] LABS: BASO % 0.5 % (0-2.0); EOS % 1.5 % (0-4.5); HEMATOCRIT 45.4 % (35.4-49); HEMOGLOBIN 14.8 GM/dL (11.7-16.9); LYMPH % 25.1 % (8-40); MCH 27.4 pg (25.7-33.7); MCHC 32.5 g/dl (32.0-35.9); MEAN CELL VOLUME 84.2 fl (80-96); MEAN PLT VOLUME 9.4 fl (7.5-11.1); MONO % 5.6 % (3.8-10.2); NEUT % 67.3 % (42.8-82.8); PLATELET COUNT 188 K/MM3 (134-434); RDW 17.1 % (11.9-15.9); WHITE BLOOD COUNT 6.3 K/mm3 (4.0-10.0)
[2020-03-28 03:26] LABS: INR 1.04 (0.83-1.09); PROTHROMBIN TIME (PATIENT) 12.8 SEC (9.7-13.0)
[2020-03-28 03:28] LABS: ACTIVATED PTT 34.8 SECONDS (25.2-36.5)
[2020-03-28 03:40] LABS: CHLORIDE 103 mmol/L (98-107); POTASSIUM 3.8 mmol/L (3.5-5.1); SODIUM 136 mmol/L (136-145)
[2020-03-28 03:43] LABS: ALBUMIN 3.8 g/dl (3.4-5.0); ANION GAP 9 MMOL/L (8-16); BLOOD UREA NITROGEN 7.6 mg/dL (7-18); CALCIUM 9.7 mg/dL (8.5-10.1); CO2 24 mmol/L (21-32); GLUCOSE,RANDOM 79 mg/dL (74-106); LIPASE 191 U/L (73-393)
[2020-03-28 03:46] LABS: CREATININE 0.8 mg/dL (0.55-1.3); SGOT/AST 30 U/L (15-37); SGPT/ALT 41 U/L (13-61)
[2020-03-28 03:47] LABS: BILIRUBIN,TOTAL 0.8 mg/dL (0.2-1)
[2020-03-28 03:48] LABS: TOT PROT 7.8 g/dl (6.4-8.2)
[2020-03-28 03:49] LABS: ALK PHOS 94 U/L (45-117)
[2020-03-28] MEDS ORDERED: MAG HYDROX/AL HYDROX/SIMETH 30 ML UNIT-DOSE CUP PO ONE (04:32)
[2020-03-28] MEDS ORDERED: FAMOTIDINE 20 MG/50 ML IVPB 20 MG/50 ML MG IVPB ONE (04:32)
[2020-03-28] MEDS ORDERED: MAG HYDROX/AL HYDROX/SIMETH 30 ML UNIT-DOSE CUP ONE ×2 (04:56→16:16)
[2020-03-28 08:20] LABS: PH,URINE 7.5 (5.0-8.0); URINE APPEARANCE CLEAR; URINE BILIRUBIN NEGATIVE (NEGATIVE); URINE COLOR YELLOW; URINE GLUCOSE (UA) NEGATIVE (NEGATIVE); URINE KETONE NEGATIVE (NEGATIVE); URINE LEUK ESTERASE NEGATIVE (NEGATIVE); URINE NITRITE NEGATIVE (NEGATIVE); URINE PROTEIN NEGATIVE (NEGATIVE); URINE UROBILINOGEN 0.2 mg/dL (0.2-1.0)
[2020-03-28] MEDS ORDERED: ENOXAPARIN NA (PORCINE) 40 MG/0.4 ML DISP.SYRIN SQ ONE (09:51)
[2020-03-28] MEDS ORDERED: PANTOPRAZOLE 40 MG TABLET ONE (09:51)
[2020-03-28] MEDS ORDERED: ATORVASTATIN CA 80 MG TABLET (FP) PO ONE (09:54)
[2020-03-28] MEDS: DEXTROSE 5%-NORMAL SALINE 1,000 ML IV SCH (09:58)
[2020-03-28] MEDS: ENOXAPARIN NA (PORCINE) 40 MG/0.4 ML DISP.SYRIN SQ SCH (09:58)
[2020-03-28] MEDS: PANTOPRAZOLE 40 MG TABLET PO SCH (09:59)
[2020-03-28] MEDS ORDERED: ATORVASTATIN CA 80 MG TABLET (FP) ONE (10:04)
[2020-03-28 11:12] LABS: URINE BENZODIAZEPINES NEGATIVE ng/ml (CUTOFF=200)
[2020-03-28 11:13] LABS: COCAINE, UR NEGATIVE ng/ml (CUTOFF=300); URINE AMPHETAMINES NEGATIVE ng/ml (CUTOFF=500); URINE BARBITURATES NEGATIVE ng/ml (CUTOFF=200)
[2020-03-28 11:16] LABS: PHENCYCLIDINE,URINE NEGATIVE ng/ml (CUTOFF=25)
[2020-03-28 11:17] LABS: METHADONE, UR NEGATIVE ng/ml (CUTOFF=300); OPIATES, URI NEGATIVE ng/ml (CUTOFF=300)
[2020-03-28 11:36] LABS: BASO % 0.6 % (0-2.0); EOS % 2.4 % (0-4.5); HEMATOCRIT 45.8 % (35.4-49); HEMOGLOBIN 15.2 GM/dL (11.7-16.9); LYMPH % 35.4 % (8-40); MCHC 33.2 g/dl (32.0-35.9); MEAN CELL VOLUME 84.4 fl (80-96); MEAN PLT VOLUME 9.8 fl (7.5-11.1); MONO % 7.2 % (3.8-10.2); NEUT % 54.4 % (42.8-82.8); PLATELET COUNT 194 K/MM3 (134-434); RBC 5.42 M/mm3 (4.00-5.60); WHITE BLOOD COUNT 5.2 K/mm3 (4.0-10.0)
[2020-03-28 11:57] LABS: CHLORIDE 106 mmol/L (98-107); POTASSIUM 3.8 mmol/L (3.5-5.1); SODIUM 137 mmol/L (136-145)
[2020-03-28 11:58] LABS: CALCIUM 9.1 mg/dL (8.5-10.1)
[2020-03-28 11:59] LABS: ANION GAP 8 MMOL/L (8-16); BLOOD UREA NITROGEN 6.7 mg/dL (7-18); CO2 23 mmol/L (21-32); GLUCOSE,RANDOM 74 mg/dL (74-106); MAGNESIUM 2.3 mg/dL (1.8-2.4)
[2020-03-28 12:02] LABS: CREATININE 0.9 mg/dL (0.55-1.3); PHOSPHOROUS 2.4 mg/dL (2.5-4.9)
[2020-03-28] MEDS ORDERED: ACETAMINOPHEN 325 MG TABLET (FP) ONE (15:57)
[2020-03-28] MEDS ORDERED: MORPHINE SULFATE 2 MG/ML VIAL IVPUSH ONE ×3 (16:57→22:17)
[2020-03-28] MEDS: MAG HYDROX/AL HYDROX/SIMETH 30 ML UNIT-DOSE CUP PO PRN (17:06)
[2020-03-28] MEDS ORDERED: MORPHINE SULFATE 2 MG/ML VIAL ONE ×2 (17:29→22:01)
[2020-03-28] MEDS: ACETAMINOPHEN 325 MG TABLET (FP) PO PRN (22:55)
[2020-03-29] MEDS ORDERED: amLODIPine BESYLATE 5 MG TABLET (FP) PO ONE ×3 (00:01→14:23)
[2020-03-29 06:42] LABS: BASO % 0.5 % (0-2.0); EOS % 3.8 % (0-4.5); HEMATOCRIT 46.6 % (35.4-49); HEMOGLOBIN 14.9 GM/dL (11.7-16.9); LYMPH % 37.9 % (8-40); MCH 27.3 pg (25.7-33.7); MCHC 32.1 g/dl (32.0-35.9); MEAN CELL VOLUME 85.2 fl (80-96); MEAN PLT VOLUME 9.5 fl (7.5-11.1); MONO % 10.7 % (3.8-10.2); NEUT % 47.1 % (42.8-82.8); PLATELET COUNT 183 K/MM3 (134-434); RBC 5.47 M/mm3 (4.00-5.60); RDW 17.1 % (11.9-15.9); WHITE BLOOD COUNT 3.8 K/mm3 (4.0-10.0)
[2020-03-29 07:02] LABS: POTASSIUM 3.7 mmol/L (3.5-5.1)
[2020-03-29 07:05] LABS: ALBUMIN 3.4 g/dl (3.4-5.0); BLOOD UREA NITROGEN 5.1 mg/dL (7-18); CALCIUM 8.5 mg/dL (8.5-10.1); MAGNESIUM 2.1 mg/dL (1.8-2.4)
[2020-03-29 07:08] LABS: PHOSPHOROUS 2.2 mg/dL (2.5-4.9)
[2020-03-29 07:09] LABS: CREATININE 0.9 mg/dL (0.55-1.3)
[2020-03-29 07:10] LABS: BILIRUBIN,TOTAL 0.7 mg/dL (0.2-1); TOT PROT 7.1 g/dl (6.4-8.2)
[2020-03-29] MEDS: ENOXAPARIN NA (PORCINE) 40 MG/0.4 ML DISP.SYRIN SQ SCH (09:25)
[2020-03-29] MEDS: PANTOPRAZOLE 40 MG TABLET PO SCH ×2 (09:26→22:04)
[2020-03-29] MEDS: ATORVASTATIN CA 80 MG TABLET (FP) PO SCH ×2 (09:26→22:04)
[2020-03-29] MEDS ORDERED: PT OWN MED DRAWER 7, Y5N ONE (11:11)
[2020-03-29] MEDS ORDERED: ACETAMINOPHEN 1000 MG/100 ML VIAL (NON FORMULARY) IVPB PRN (11:35)
[2020-03-29] MEDS: MAG HYDROX/AL HYDROX/SIMETH 30 ML UNIT-DOSE CUP PO PRN (12:40)
[2020-03-29] MEDS: DEXTROSE 5%-NORMAL SALINE 1,000 ML IV SCH (15:55)
[2020-03-29] MEDS: POLYETHYLENE GLYCOL 3350 119 GM BTL PO SCH (18:22)
[2020-03-30 07:43] LABS: BASO % 0.7 % (0-2.0); EOS % 3.3 % (0-4.5); HEMATOCRIT 47.9 % (35.4-49); HEMOGLOBIN 15.5 GM/dL (11.7-16.9); LYMPH % 36.8 % (8-40); MCH 27.3 pg (25.7-33.7); MCHC 32.3 g/dl (32.0-35.9); MEAN CELL VOLUME 84.5 fl (80-96); MONO % 10.4 % (3.8-10.2); NEUT % 48.8 % (42.8-82.8); PLATELET COUNT 186 K/MM3 (134-434); RBC 5.67 M/mm3 (4.00-5.60); RDW 17.3 % (11.9-15.9); WHITE BLOOD COUNT 3.8 K/mm3 (4.0-10.0)
[2020-03-30 07:49] LABS: POTASSIUM 3.9 mmol/L (3.5-5.1); PROTHROMBIN TIME (PATIENT) 12.3 SEC (9.7-13.0)
[2020-03-30 07:51] LABS: ALBUMIN 3.8 g/dl (3.4-5.0); BLOOD UREA NITROGEN 6.7 mg/dL (7-18); CALCIUM 9.6 mg/dL (8.5-10.1)
[2020-03-30 07:52] LABS: ACTIVATED PTT 37.1 SECONDS (25.2-36.5)
[2020-03-30 07:56] LABS: BILIRUBIN,TOTAL 0.5 mg/dL (0.2-1); TOT PROT 7.6 g/dl (6.4-8.2)
[2020-03-30] MEDS: FOLIC ACID 1 MG TABLET (FP) PO SCH (09:40)
[2020-03-30] MEDS: amLODIPine BESYLATE 10 MG TABLET (FP) PO SCH (09:40)
[2020-03-30] MEDS: ENOXAPARIN NA (PORCINE) 40 MG/0.4 ML DISP.SYRIN SQ SCH (09:40)
[2020-03-30] MEDS: PANTOPRAZOLE 40 MG TABLET PO SCH ×2 (09:40→22:57)
[2020-03-30] MEDS: POLYETHYLENE GLYCOL 3350 119 GM BTL PO SCH (09:45)
[2020-03-30] MEDS ORDERED: amLODIPine BESYLATE 5 MG TABLET (FP) PO SCH (10:00)
[2020-03-30] MEDS: ATORVASTATIN CA 80 MG TABLET (FP) PO SCH (22:56)
[2020-03-31] MEDS: ENOXAPARIN NA (PORCINE) 40 MG/0.4 ML DISP.SYRIN SQ SCH (09:55)
[2020-03-31] MEDS: PANTOPRAZOLE 40 MG TABLET PO SCH ×2 (09:55→21:08)
[2020-03-31] MEDS: amLODIPine BESYLATE 10 MG TABLET (FP) PO SCH (09:55)
[2020-03-31] MEDS: LABETALOL HCL 100 MG TABLET (FP) PO SCH ×2 (09:55→21:08)
[2020-03-31] MEDS: FOLIC ACID 1 MG TABLET (FP) PO SCH (09:55)
[2020-03-31] MEDS: POLYETHYLENE GLYCOL 3350 119 GM BTL PO SCH ×2 (09:56→10:02)
[2020-03-31] MEDS ORDERED: VALSARTAN 80 MG TABLET PO SCH (10:00)
[2020-03-31] MEDS: ATORVASTATIN CA 80 MG TABLET (FP) PO SCH (21:08)
[2020-04-01] MEDS ORDERED: PT OWN MED DRAWER 7, Y5N ONE (09:18)
[2020-04-01] MEDS ORDERED: REGADENOSON 0.4 MG/5 ML PRE-FILLED SYRINGE IVPUSH ONE ×2 (09:20→10:30)
[2020-04-01] MEDS: FOLIC ACID 1 MG TABLET (FP) PO SCH (09:22)
[2020-04-01] MEDS: LABETALOL HCL 100 MG TABLET (FP) PO SCH ×2 (09:22→21:48)
[2020-04-01] MEDS: PANTOPRAZOLE 40 MG TABLET PO SCH ×2 (09:22→21:48)
[2020-04-01] MEDS: amLODIPine BESYLATE 10 MG TABLET (FP) PO SCH (09:22)
[2020-04-01] MEDS: ASPIRIN COATED 81 MG TABLET.EC PO SCH (09:22)
[2020-04-01] MEDS: ACETAMINOPHEN 325 MG TABLET (FP) PO PRN (09:22)
[2020-04-01] MEDS: ENOXAPARIN NA (PORCINE) 40 MG/0.4 ML DISP.SYRIN SQ SCH (09:22)
[2020-04-01] MEDS: POLYETHYLENE GLYCOL 3350 119 GM BTL PO SCH (12:28)
[2020-04-01] MEDS: DEXTROSE 5%-0.45% SALINE 1,000 ML IV SCH (20:30)
[2020-04-01] MEDS: ATORVASTATIN CA 80 MG TABLET (FP) PO SCH (21:48)
[2020-04-02 07:11] LABS: HEMATOCRIT 45.9 % (35.4-49); HEMOGLOBIN 14.9 GM/dL (11.7-16.9); MCH 27.4 pg (25.7-33.7); MCHC 32.4 g/dl (32.0-35.9); MEAN CELL VOLUME 84.5 fl (80-96); PLATELET COUNT 173 K/MM3 (134-434); RBC 5.43 M/mm3 (4.00-5.60); RDW 16.9 % (11.9-15.9); WHITE BLOOD COUNT 4.6 K/mm3 (4.0-10.0)
[2020-04-02 07:23] LABS: POTASSIUM 3.7 mmol/L (3.5-5.1)
[2020-04-02 07:30] LABS: BLOOD UREA NITROGEN 13.2 mg/dL (7-18); CALCIUM 8.4 mg/dL (8.5-10.1); MAGNESIUM 1.9 mg/dL (1.8-2.4)
[2020-04-02 07:33] LABS: CREATININE 1.1 mg/dL (0.55-1.3)
[2020-04-02] MEDS: DEXTROSE 5%-0.45% SALINE 1,000 ML IV SCH (07:41)
[2020-04-02] MEDS: LABETALOL HCL 100 MG TABLET (FP) PO SCH (09:04)
[2020-04-02] MEDS: amLODIPine BESYLATE 10 MG TABLET (FP) PO SCH (09:04)
[2020-04-02] MEDS: PANTOPRAZOLE 40 MG TABLET PO SCH (09:04)
[2020-04-02] MEDS: ASPIRIN COATED 81 MG TABLET.EC PO SCH (09:04)
[2020-04-02] MEDS: POLYETHYLENE GLYCOL 3350 119 GM BTL PO SCH (09:04)
[2020-04-02] MEDS: FOLIC ACID 1 MG TABLET (FP) PO SCH (09:05)
[2020-04-02] MEDS ORDERED: POTASSIUM CHLORIDE TABS 20 MEQ TABLET.ER (FP) PO ONE (09:08)
[2020-04-02] MEDS ORDERED: NICOTINE 21 MG/24 HOURS TOPICAL PATCH TD SCH (12:15)
[2020-04-02] MEDS ORDERED: MIDAZOLAM HCL 2 MG/2 ML SINGLE DOSE VIAL ONE (14:30)
[2020-04-02 15:02] VITALS: TEMP 98.2
[2020-04-02 15:33] VITALS: BP 149/82; PULSE 86
== END 2020-04-02 19:25 | disposition home or self-care (01) | DRG 243 ==
LOC: JER 00:25 → OBSVTOIN 04:43 → INTOOBSV 04:43 → JERBED 04:43 → J4S 22:41 → OBSVTOIN 04-01 13:50
PROVIDERS: ATTEND Internal Medicine
PROC: 0DB68ZX Excision of Stomach, Via Natural or Artificial Opening Endoscopic, Diagnostic (ICD-10-PCS; 2020-04-02)
PROC: 0DB58ZX Excision of Esophagus, Via Natural or Artificial Opening Endoscopic, Diagnostic (ICD-10-PCS; 2020-04-02)
PROC: 0DB78ZX Excision of Stomach, Pylorus, Via Natural or Artificial Opening Endoscopic, Diagnostic (ICD-10-PCS; 2020-04-02)
PROC: 0DB98ZX Excision of Duodenum, Via Natural or Artificial Opening Endoscopic, Diagnostic (ICD-10-PCS; principal; 2020-04-02 14:00)
DX: K21.00 Gastro-esophageal reflux disease with esophagitis, without bleeding (principal); D47.Z2 Castleman disease; R16.0 Hepatomegaly, not elsewhere classified; K76.0 Fatty (change of) liver, not elsewhere classified; M32.9 Systemic lupus erythematosus, unspecified; E11.9 Type 2 diabetes mellitus without complications; F10.10 Alcohol abuse, uncomplicated; I10 Essential (primary) hypertension; J45.909 Unspecified asthma, uncomplicated; E78.5 Hyperlipidemia, unspecified; K44.9 Diaphragmatic hernia without obstruction or gangrene; K57.90 Diverticulosis of intestine, part unspecified, without perforation or abscess without bleeding; K29.70 Gastritis, unspecified, without bleeding; F39 Unspecified mood [affective] disorder; F17.210 Nicotine dependence, cigarettes, uncomplicated; R07.89 Other chest pain; K59.00 Constipation, unspecified; K29.80 Duodenitis without bleeding
CPT/HCPCS: 36415; 74177-TC; 78452-TC; 80048; 80053; 80061; 80307; 81003; 82962; 83690; 83721; 83735; 84100; 84484; 85025; 85027; 85610; 85730; 86850; 86900; 86901; 87086; 88305-TC; 93005; 93010; 93017; 93306-TC; 99285-25; A9502; C9803; G0378; J0131; J2785; U0003

== ENCOUNTER 2020-06-06 16:22 | Inpatient (IN) | payer OTHER ==
[2020-06-06 16:38] VITALS: BMI 30.1
[2020-06-06] MEDS ORDERED: FAMOTIDINE 20 MG/50 ML IVPB 20 MG/50 ML MG IVPB ONE ×2 (17:08→21:35)
[2020-06-06] MEDS ORDERED: METOCLOPRAMIDE HCL INJECTION 10 MG/2 ML VIAL IVPB ONE (17:08)
[2020-06-06] MEDS ORDERED: SODIUM CHLORIDE 1,000 ML IV STA (17:08)
[2020-06-06] MEDS ORDERED: DICYCLOMINE HCL 20 MG TABLET PO ONE (17:08)
[2020-06-06] MEDS ORDERED: ACETAMINOPHEN 1000 MG/100 ML VIAL (NON FORMULARY) IVPB ONE (17:08)
[2020-06-06] MEDS ORDERED: METOCLOPRAMIDE HCL INJECTION 10 MG/2 ML VIAL ONE (17:56)
[2020-06-06] MEDS ORDERED: ACETAMINOPHEN INJECTION 100 ML IVPB ONE (17:57)
[2020-06-06] MEDS ORDERED: DICYCLOMINE HCL 10 MG CAPSULE ONE (17:57)
[2020-06-06 18:36] LABS: BASO % 0.4 % (0-2.0); EOS % 1.1 % (0-4.5); HEMATOCRIT 43.8 % (35.4-49); HEMOGLOBIN 14.2 GM/dL (11.7-16.9); LYMPH % 41.4 % (8-40); MCH 27.7 pg (25.7-33.7); MCHC 32.6 g/dl (32.0-35.9); MEAN PLT VOLUME 9.5 fl (7.5-11.1); MONO % 8.4 % (3.8-10.2); NEUT % 48.7 % (42.8-82.8); PLATELET COUNT 197 K/MM3 (134-434); RBC 5.15 M/mm3 (4.00-5.60); RDW 15.8 % (11.9-15.9); WHITE BLOOD COUNT 5.4 K/mm3 (4.0-10.0)
[2020-06-06 18:48] LABS: POTASSIUM 4.3 mmol/L (3.5-5.1)
[2020-06-06 18:51] LABS: ALBUMIN 3.8 g/dl (3.4-5.0); CALCIUM 9.1 mg/dL (8.5-10.1)
[2020-06-06 18:52] LABS: BLOOD UREA NITROGEN 11.9 mg/dL (7-18)
[2020-06-06 18:54] LABS: CREATININE 1.1 mg/dL (0.55-1.3)
[2020-06-06 18:56] LABS: BILIRUBIN,TOTAL 1.1 mg/dL (0.2-1); TOT PROT 7.5 g/dl (6.4-8.2)
[2020-06-06 19:05] LABS: EPI CELLS 6 /uL (0-25.1); HYALINE CASTS 1 /uL (0-3.1); URINE APPEARANCE CLEAR; URINE BACTERIA 342 /uL (0-1359); URINE BILIRUBIN NEGATIVE (NEGATIVE); URINE COLOR YELLOW; URINE GLUCOSE (UA) NEGATIVE (NEGATIVE); URINE KETONE 1+ (NEGATIVE); URINE LEUK ESTERASE NEGATIVE (NEGATIVE); URINE NITRITE NEGATIVE (NEGATIVE); URINE PROTEIN 2+ (NEGATIVE); URINE RBC 6 /uL (0-23.9); URINE UROBILINOGEN 0.2 mg/dL (0.2-1.0); URINE WBC 8 /uL (0-25.8)
[2020-06-06] MEDS ORDERED: KETOROLAC TROMETHAMINE 15 MG/ML VIAL IVPUSH ONE (21:34)
[2020-06-06] MEDS ORDERED: KETOROLAC TROMETHAMINE 15 MG/ML VIAL ONE (21:35)
[2020-06-06] MEDS ORDERED: morphine CARPU-JECT 4 MG/1 ML DISP.SYRIN IVPUSH ONE (22:24)
[2020-06-06] MEDS ORDERED: LACTATED RINGERS SOLUTION 1,000 ML/1,000 ML INFUS.BAG IV SCH (22:30)
[2020-06-06] MEDS ORDERED: morphine SULFATE 4 MG/ML VIAL ONE (23:35)
[2020-06-07] MEDS ORDERED: MORPHINE SULFATE 2 MG/ML VIAL IVPUSH PRN ×2 (02:21→10:20)
[2020-06-07] MEDS ORDERED: LACTATED RINGERS SOLUTION 1,000 ML IV SCH (02:30)
[2020-06-07] MEDS ORDERED: MORPHINE SULFATE 2 MG/ML VIAL ONE (06:36)
[2020-06-07 08:52] LABS: HEMATOCRIT 44.2 % (35.4-49); HEMOGLOBIN 14.3 GM/dL (11.7-16.9); MCH 27.5 pg (25.7-33.7); MCHC 32.4 g/dl (32.0-35.9); MEAN CELL VOLUME 84.8 fl (80-96); MEAN PLT VOLUME 9.2 fl (7.5-11.1); PLATELET COUNT 174 K/MM3 (134-434); RBC 5.22 M/mm3 (4.00-5.60); RDW 15.7 % (11.9-15.9); WHITE BLOOD COUNT 3.6 K/mm3 (4.0-10.0)
[2020-06-07 09:14] LABS: CHLORIDE 105 mmol/L (98-107); SODIUM 136 mmol/L (136-145)
[2020-06-07 09:17] LABS: ALBUMIN 3.4 g/dl (3.4-5.0); ANION GAP 6 MMOL/L (8-16); CO2 25 mmol/L (21-32); GLUCOSE,RANDOM 65 mg/dL (74-106)
[2020-06-07 09:20] LABS: CREATININE 0.9 mg/dL (0.55-1.3); PHOSPHOROUS 2.8 mg/dL (2.5-4.9); SGOT/AST 17 U/L (15-37); SGPT/ALT 31 U/L (13-61)
[2020-06-07 09:21] LABS: BILIRUBIN,TOTAL 0.8 mg/dL (0.2-1)
[2020-06-07 09:22] LABS: TOT PROT 6.8 g/dl (6.4-8.2)
[2020-06-07 09:23] LABS: ALK PHOS 84 U/L (45-117)
[2020-06-07 10:02] LABS: ERYTHROCYTE SEDIMENTATION RATE 14 mm/hr (0-10)
[2020-06-07] MEDS: ENOXAPARIN NA (PORCINE) 40 MG/0.4 ML DISP.SYRIN SQ SCH (11:18)
[2020-06-07] MEDS: INSULIN SLIDING SCALE (NOVOLOG) 1 VIAL SQ SCH (11:18)
[2020-06-07] MEDS ORDERED: oxyCODONE HCL 5 MG TABLET PO PRN (12:40)
[2020-06-07] MEDS ORDERED: oxyCODONE HCL 5 MG TABLET ONE (14:30)
[2020-06-07] MEDS ORDERED: PATIENT'S OWN MEDICATION (NON-FORMULARY) (Mag Carb/Aluminum Hydrox/Algin [Gaviscon Liquid] PO PRN (14:46)
[2020-06-07] MEDS: amLODIPine BESYLATE 5 MG TABLET (FP) PO SCH (14:56)
[2020-06-07] MEDS ORDERED: MAG HYDROX/AL HYDROX/SIMETH 30 ML UNIT-DOSE CUP PO PRN (15:09)
[2020-06-07] MEDS ORDERED: LABETALOL HCL 100 MG TABLET (FP) PO ONE (17:07)
[2020-06-07] MEDS: oxyCODONE HCL 5 MG TABLET PO PRN ×2 (17:45→23:28)
[2020-06-07] MEDS ORDERED: risperiDONE 2 MG TABLET PO SCH (22:00)
[2020-06-07] MEDS: QUEtiapine FUMARATE 200 MG TABLET PO SCH (23:05)
[2020-06-07] MEDS: ATORVASTATIN CA 10 MG TABLET (FP) PO SCH (23:05)
[2020-06-07] MEDS: risperiDONE 1 MG TABLET PO SCH (23:06)
[2020-06-08] MEDS ORDERED: oxyCODONE HCL 5 MG TABLET PO PRN (07:36)
[2020-06-08] MEDS: SERTRALINE HCL 50 MG TABLET (FP) PO SCH (09:15)
[2020-06-08] MEDS: ENOXAPARIN NA (PORCINE) 40 MG/0.4 ML DISP.SYRIN SQ SCH (09:15)
[2020-06-08] MEDS: PANTOPRAZOLE 40 MG TABLET PO SCH (09:15)
[2020-06-08] MEDS: amLODIPine BESYLATE 5 MG TABLET (FP) PO SCH (09:16)
[2020-06-08] MEDS ORDERED: PT OWN MED DRAWER 7, Y5N ONE ×2 (09:23→10:48)
[2020-06-08] MEDS: risperiDONE 1 MG TABLET PO SCH ×2 (09:24→21:58)
[2020-06-08] MEDS: hydrOXYzine PAMOATE 50 MG CAPSULE (FP) PO SCH (10:49)
[2020-06-08 13:19] LABS: CHOLESTEROL 231 mg/dL (50-200); TRIGLYCERIDES 158 mg/dL (0-150)
[2020-06-08 13:20] LABS: LDL CHOLESTEROL (ONLY SJRH) 160 mg/dL (5-100)
[2020-06-08 13:22] LABS: HDL CHOLESTEROL 44 mg/dL (40-60)
[2020-06-08] MEDS: ACETAMINOPHEN 325 MG TABLET (FP) PO PRN (18:44)
[2020-06-08] MEDS: QUEtiapine FUMARATE 200 MG TABLET PO SCH (21:58)
[2020-06-08] MEDS: ATORVASTATIN CA 10 MG TABLET (FP) PO SCH (21:58)
[2020-06-09] MEDS: ACETAMINOPHEN 325 MG TABLET (FP) PO PRN (06:17)
[2020-06-09] MEDS ORDERED: DOCUSATE SODIUM 100 MG CAPSULE (FP) PO ONE (09:30)
[2020-06-09] MEDS ORDERED: POLYETHYLENE GLYCOL 3350 119 GM BTL PO ONE (09:30)
[2020-06-09 09:39] LABS: BASO % 0.2 % (0-2.0); EOS % 1.5 % (0-4.5); HEMATOCRIT 46.8 % (35.4-49); HEMOGLOBIN 15.5 GM/dL (11.7-16.9); MCHC 33.1 g/dl (32.0-35.9); MEAN CELL VOLUME 84.7 fl (80-96); MEAN PLT VOLUME 9.4 fl (7.5-11.1); MONO % 8.1 % (3.8-10.2); NEUT % 54.2 % (42.8-82.8); PLATELET COUNT 180 K/MM3 (134-434); RBC 5.53 M/mm3 (4.00-5.60); RDW 15.9 % (11.9-15.9)
[2020-06-09] MEDS ORDERED: PT OWN MED DRAWER 7, Y5N ONE (09:42)
[2020-06-09] MEDS: amLODIPine BESYLATE 5 MG TABLET (FP) PO SCH (09:43)
[2020-06-09] MEDS: PANTOPRAZOLE 40 MG TABLET PO SCH (09:43)
[2020-06-09] MEDS: ENOXAPARIN NA (PORCINE) 40 MG/0.4 ML DISP.SYRIN SQ SCH (09:43)
[2020-06-09] MEDS: SERTRALINE HCL 50 MG TABLET (FP) PO SCH (09:43)
[2020-06-09] MEDS: risperiDONE 1 MG TABLET PO SCH (09:43)
[2020-06-09] MEDS: hydrOXYzine PAMOATE 50 MG CAPSULE (FP) PO SCH (09:44)
[2020-06-09 09:58] LABS: POTASSIUM 4.3 mmol/L (3.5-5.1)
[2020-06-09 10:00] LABS: CALCIUM 8.9 mg/dL (8.5-10.1)
[2020-06-09 10:01] LABS: ALBUMIN 3.8 g/dl (3.4-5.0); MAGNESIUM 2.1 mg/dL (1.8-2.4)
[2020-06-09 10:04] LABS: PHOSPHOROUS 2.9 mg/dL (2.5-4.9)
[2020-06-09 10:05] LABS: BILIRUBIN,TOTAL 0.5 mg/dL (0.2-1); TOT PROT 7.5 g/dl (6.4-8.2)
[2020-06-09 10:47] VITALS: BP 142/85; PULSE 88; TEMP 98.9
== END 2020-06-09 17:33 | disposition home or self-care (01) | DRG 282 ==
LOC: JER 16:22 → JERBED 22:24 → J6S 06-07 15:58
PROVIDERS: ADMIT Hospitalist; ATTEND Student in an Organized Health Care Education/Training Program
DX: K85.90 Acute pancreatitis without necrosis or infection, unspecified (principal); M87.051 Idiopathic aseptic necrosis of right femur; K21.9 Gastro-esophageal reflux disease without esophagitis; K29.80 Duodenitis without bleeding; I10 Essential (primary) hypertension; E78.5 Hyperlipidemia, unspecified; E11.9 Type 2 diabetes mellitus without complications; J45.909 Unspecified asthma, uncomplicated; F10.10 Alcohol abuse, uncomplicated; D47.Z2 Castleman disease; F12.20 Cannabis dependence, uncomplicated; K82.4 Cholesterolosis of gallbladder; K76.0 Fatty (change of) liver, not elsewhere classified; M32.9 Systemic lupus erythematosus, unspecified; Z91.14 Patient's other noncompliance with medication regimen
CPT/HCPCS: 36415; 74177-TC; 76705-TC; 80053; 80061; 81003; 83036; 83690; 83721; 83735; 84100; 85025; 85027; 85651; 86038; 86140; 93005; 93010; 99285-25; C9803; J0131; J2794; Q9967; U0003

== ENCOUNTER 2020-07-15 17:13 | Emergency (ER) | payer OTHER ==
[2020-07-15 17:39] VITALS: PULSE 78; TEMP 98.2; BMI 28.0
[2020-07-15] MEDS ORDERED: SODIUM CHLORIDE 0.9% 500 ML INFUS.BAG IV ONE (18:20)
[2020-07-15] MEDS ORDERED: morphine CARPU-JECT 4 MG/1 ML DISP.SYRIN IVPUSH ONE (18:27)
[2020-07-15] MEDS ORDERED: morphine SULFATE 4 MG/ML VIAL ONE (18:58)
[2020-07-15 20:38] LABS: BASO % 0.3 % (0-2.0); EOS % 2.6 % (0-4.5); HEMOGLOBIN 13.4 GM/dL (11.7-16.9); MCH 27.9 pg (25.7-33.7); MCHC 32.8 g/dl (32.0-35.9); MEAN CELL VOLUME 85.1 fl (80-96); MEAN PLT VOLUME 9.3 fl (7.5-11.1); MONO % 8.5 % (3.8-10.2); NEUT % 51.6 % (42.8-82.8); PLATELET COUNT 190 K/MM3 (134-434); RBC 4.82 M/mm3 (4.00-5.60); RDW 16.3 % (11.9-15.9); WHITE BLOOD COUNT 6.3 K/mm3 (4.0-10.0)
[2020-07-15 21:12] LABS: POTASSIUM 3.6 mmol/L (3.5-5.1)
[2020-07-15 21:14] LABS: ALBUMIN 3.6 g/dl (3.4-5.0); BLOOD UREA NITROGEN 7.9 mg/dL (7-18); CALCIUM 9.1 mg/dL (8.5-10.1)
[2020-07-15 21:17] LABS: CREATININE 0.9 mg/dL (0.55-1.3)
[2020-07-15 21:19] LABS: BILIRUBIN,TOTAL 0.8 mg/dL (0.2-1)
[2020-07-15 21:28] LABS: EPI CELLS 6 /uL (0-25.1); HYALINE CASTS 3 /uL (0-3.1); PH,URINE 6.5 (5.0-8.0); URINE APPEARANCE CLEAR; URINE BACTERIA 98 /uL (0-1359); URINE BILIRUBIN NEGATIVE (NEGATIVE); URINE COLOR YELLOW; URINE GLUCOSE (UA) NEGATIVE (NEGATIVE); URINE KETONE NEGATIVE (NEGATIVE); URINE LEUK ESTERASE NEGATIVE (NEGATIVE); URINE NITRITE NEGATIVE (NEGATIVE); URINE PROTEIN 1+ (NEGATIVE); URINE RBC 1 /uL (0-23.9); URINE UROBILINOGEN 0.2 mg/dL (0.2-1.0); URINE WBC 8 /uL (0-25.8)
[2020-07-15] MEDS ORDERED: ACETAMINOPHEN 1000 MG/100 ML VIAL (NON FORMULARY) IVPB ONE (23:06)
[2020-07-15 23:07] VITALS: BP 145/97
[2020-07-15] MEDS ORDERED: ACETAMINOPHEN 325 MG TABLET (FP) PO ONE (23:12)
[2020-07-15] MEDS ORDERED: ACETAMINOPHEN 325 MG TABLET (FP) ONE (23:18)
== END 2020-07-15 23:00 | disposition home or self-care (01) ==
LOC: JER 17:13
PROC: 3E033NZ Introduction of Analgesics, Hypnotics, Sedatives into Peripheral Vein, Percutaneous Approach (ICD-10-PCS; principal; 2020-07-15)
DX: R10.9 Unspecified abdominal pain (principal)
CPT/HCPCS: 36415; 71045-TC-FY; 74177-TC; 80053; 81003; 82550; 82553; 83690; 84484; 85025; 87086; 93005; 93010; 99285-25; C9803; Q9967; U0003

== ENCOUNTER 2020-07-16 15:10 | Inpatient (IN) | payer OTHER ==
[2020-07-16 15:26] VITALS: BMI 28.0
[2020-07-16] MEDS ORDERED: morphine CARPU-JECT 2 MG/1 ML DISP.SYRIN IVPUSH ONE (16:27)
[2020-07-16] MEDS ORDERED: SODIUM CHLORIDE 1,000 ML IV SCH (17:00)
[2020-07-16] MEDS ORDERED: MORPHINE SULFATE 2 MG/ML VIAL ONE ×2 (17:16→22:27)
[2020-07-16 17:31] LABS: BASO % 0.3 % (0-2.0); EOS % 1.3 % (0-4.5); HEMATOCRIT 43.3 % (35.4-49); LYMPH % 33.8 % (8-40); MCH 27.5 pg (25.7-33.7); MCHC 32.4 g/dl (32.0-35.9); MEAN CELL VOLUME 84.8 fl (80-96); MEAN PLT VOLUME 8.5 fl (7.5-11.1); MONO % 6.6 % (3.8-10.2); PLATELET COUNT 199 K/MM3 (134-434); RDW 16.2 % (11.9-15.9); WHITE BLOOD COUNT 6.4 K/mm3 (4.0-10.0)
[2020-07-16 17:39] LABS: INR 1.04 (0.83-1.09); PROTHROMBIN TIME (PATIENT) 12.8 SEC (9.7-13.0)
[2020-07-16 17:41] LABS: ACTIVATED PTT 37.3 SECONDS (25.2-36.5)
[2020-07-16 17:43] LABS: CHLORIDE 106 mmol/L (98-107); SODIUM 135 mmol/L (136-145)
[2020-07-16 17:45] LABS: ALBUMIN 3.7 g/dl (3.4-5.0); ANION GAP 7 MMOL/L (8-16); BLOOD UREA NITROGEN 7.3 mg/dL (7-18); CALCIUM 9.3 mg/dL (8.5-10.1); CO2 22 mmol/L (21-32); LIPASE 102 U/L (73-393)
[2020-07-16 17:46] LABS: GLUCOSE,RANDOM 83 mg/dL (74-106)
[2020-07-16 17:48] LABS: CREATININE 0.9 mg/dL (0.55-1.3); SGOT/AST 32 U/L (15-37); SGPT/ALT 25 U/L (13-61)
[2020-07-16 17:50] LABS: BILIRUBIN,TOTAL 0.9 mg/dL (0.2-1); TOT PROT 7.6 g/dl (6.4-8.2)
[2020-07-16 17:51] LABS: ALK PHOS 101 U/L (45-117)
[2020-07-16] MEDS ORDERED: LACTATED RINGERS SOLUTION 1,000 ML/1,000 ML INFUS.BAG IV SCH ×2 (19:50→20:52)
[2020-07-16] MEDS ORDERED: MAG HYDROX/AL HYDROX/SIMETH 30 ML UNIT-DOSE CUP PO PRN (20:36)
[2020-07-16] MEDS: INSULIN SLIDING SCALE (NOVOLOG) 1 VIAL SQ SCH (21:10)
[2020-07-16] MEDS ORDERED: PANTOPRAZOLE SODIUM 40 MG VIAL ONE (21:15)
[2020-07-16] MEDS: PANTOPRAZOLE SODIUM 40 MG VIAL IVPUSH SCH ×2 (21:23→22:07)
[2020-07-16] MEDS: MORPHINE SULFATE 2 MG/ML VIAL IVPUSH PRN (22:30)
[2020-07-16] MEDS ORDERED: QUEtiapine FUMARATE 100 MG TABLET (FP) ONE (23:51)
[2020-07-16] MEDS: QUEtiapine FUMARATE 200 MG TABLET PO SCH (23:54)
[2020-07-17] MEDS: MORPHINE SULFATE 2 MG/ML VIAL IVPUSH PRN ×3 (04:33→17:44)
[2020-07-17] MEDS: INSULIN SLIDING SCALE (NOVOLOG) 1 VIAL SQ SCH ×4 (06:00→21:16)
[2020-07-17] MEDS ORDERED: LACTATED RINGERS SOLUTION 1,000 ML/1,000 ML INFUS.BAG IV SCH (08:00)
[2020-07-17] MEDS ORDERED: PT OWN MED DRAWER 7, Y5N ONE (10:26)
[2020-07-17 10:32] LABS: BASO % 0.5 % (0-2.0); EOS % 2.1 % (0-4.5); HEMATOCRIT 41.3 % (35.4-49); HEMOGLOBIN 13.6 GM/dL (11.7-16.9); LYMPH % 34.6 % (8-40); MCH 27.8 pg (25.7-33.7); MCHC 32.9 g/dl (32.0-35.9); MEAN CELL VOLUME 84.7 fl (80-96); MEAN PLT VOLUME 9.2 fl (7.5-11.1); MONO % 8.3 % (3.8-10.2); NEUT % 54.5 % (42.8-82.8); PLATELET COUNT 194 K/MM3 (134-434); RBC 4.87 M/mm3 (4.00-5.60); RDW 16.6 % (11.9-15.9)
[2020-07-17] MEDS: PANTOPRAZOLE SODIUM 40 MG VIAL IVPUSH SCH ×2 (10:42→21:03)
[2020-07-17] MEDS: SERTRALINE HCL 50 MG TABLET (FP) PO SCH (10:42)
[2020-07-17] MEDS: ENOXAPARIN NA (PORCINE) 40 MG/0.4 ML DISP.SYRIN SQ SCH (10:43)
[2020-07-17 10:50] LABS: AMYLASE 55 U/L (25-115); LIPASE 103 U/L (73-393)
[2020-07-17 10:52] LABS: POTASSIUM 3.7 mmol/L (3.5-5.1)
[2020-07-17 10:56] LABS: ALBUMIN 3.3 g/dl (3.4-5.0); BLOOD UREA NITROGEN 5.4 mg/dL (7-18); MAGNESIUM 1.8 mg/dL (1.8-2.4)
[2020-07-17 10:57] LABS: CALCIUM 8.9 mg/dL (8.5-10.1)
[2020-07-17 10:59] LABS: CREATININE 0.8 mg/dL (0.55-1.3); PHOSPHOROUS 2.7 mg/dL (2.5-4.9)
[2020-07-17 11:01] LABS: TOT PROT 6.7 g/dl (6.4-8.2)
[2020-07-17] MEDS ORDERED: INSULIN (NOVOLOG) ASPART 100 UNITS/ML 10ML VIAL ONE (12:26)
[2020-07-17] MEDS: NICOTINE 7 MG/24 HOURS TOPICAL PATCH TD SCH (12:51)
[2020-07-17] MEDS: LACTATED RINGERS SOLUTION 1,000 ML/1,000 ML INFUS.BAG IV SCH (15:37)
[2020-07-17] MEDS ORDERED: KETOROLAC TROMETHAMINE 15 MG/ML VIAL IVPUSH PRN (17:14)
[2020-07-17] MEDS ORDERED: morphine CARPU-JECT 2 MG/1 ML DISP.SYRIN IVPUSH PRN (17:18)
[2020-07-17] MEDS: amLODIPine BESYLATE 10 MG TABLET (FP) PO SCH (17:44)
[2020-07-17] MEDS ORDERED: HYDROCHLOROTHIAZIDE 25 MG TABLET (FP) PO ONE (18:28)
[2020-07-17] MEDS ORDERED: LABETALOL HCL 5 MG/1 ML (100MG/20 ML VIAL) IVPB ONE ×2 (18:50→19:15)
[2020-07-17] MEDS ORDERED: LABETALOL HCL 5 MG/1 ML (100MG/20 ML VIAL) IVPB PRN (18:51)
[2020-07-17] MEDS ORDERED: LABETALOL HCL 200 MG TABLET (FP) PO ONE (19:11)
[2020-07-17] MEDS: ATORVASTATIN CA 10 MG TABLET (FP) PO SCH (21:03)
[2020-07-17] MEDS: QUEtiapine FUMARATE 200 MG TABLET PO SCH (21:03)
[2020-07-17] MEDS: risperiDONE 2 MG TABLET PO SCH (21:03)
[2020-07-18] MEDS: LACTATED RINGERS SOLUTION 1,000 ML/1,000 ML INFUS.BAG IV SCH ×2 (01:32→16:59)
[2020-07-18] MEDS: INSULIN SLIDING SCALE (NOVOLOG) 1 VIAL SQ SCH ×3 (06:09→17:00)
[2020-07-18] MEDS: MORPHINE SULFATE 2 MG/ML VIAL IVPUSH PRN ×3 (07:00→20:43)
[2020-07-18 08:44] LABS: BASO % 0.4 % (0-2.0); EOS % 2.3 % (0-4.5); HEMOGLOBIN 13.8 GM/dL (11.7-16.9); LYMPH % 31.1 % (8-40); MEAN CELL VOLUME 84.9 fl (80-96); MEAN PLT VOLUME 9.3 fl (7.5-11.1); MONO % 9.3 % (3.8-10.2); NEUT % 56.9 % (42.8-82.8); PLATELET COUNT 189 K/MM3 (134-434); RBC 4.94 M/mm3 (4.00-5.60); RDW 16.4 % (11.9-15.9); WHITE BLOOD COUNT 4.1 K/mm3 (4.0-10.0)
[2020-07-18 08:54] LABS: POTASSIUM 3.9 mmol/L (3.5-5.1)
[2020-07-18 09:05] LABS: ALBUMIN 3.4 g/dl (3.4-5.0); BLOOD UREA NITROGEN 4.3 mg/dL (7-18); CALCIUM 9.1 mg/dL (8.5-10.1)
[2020-07-18 09:06] LABS: MAGNESIUM 1.9 mg/dL (1.8-2.4)
[2020-07-18 09:08] LABS: CREATININE 0.8 mg/dL (0.55-1.3)
[2020-07-18 09:09] LABS: TOT PROT 6.9 g/dl (6.4-8.2)
[2020-07-18] MEDS ORDERED: PT OWN MED DRAWER 7, Y5N ONE (09:31)
[2020-07-18] MEDS: SERTRALINE HCL 50 MG TABLET (FP) PO SCH (09:39)
[2020-07-18] MEDS: MIRTAZAPINE 30 MG TABLET PO SCH (09:39)
[2020-07-18] MEDS: FOLIC ACID 1 MG TABLET (FP) PO SCH (09:39)
[2020-07-18] MEDS: ENOXAPARIN NA (PORCINE) 40 MG/0.4 ML DISP.SYRIN SQ SCH (09:40)
[2020-07-18] MEDS: amLODIPine BESYLATE 10 MG TABLET (FP) PO SCH (09:40)
[2020-07-18] MEDS: THIAMINE HCL 100 MG TABLET (FP) PO SCH (09:40)
[2020-07-18] MEDS: MULTIVITAMINS (DAILY MVI) TABLET (FP) PO SCH (09:40)
[2020-07-18] MEDS: NICOTINE 7 MG/24 HOURS TOPICAL PATCH TD SCH (09:41)
[2020-07-18] MEDS: PANTOPRAZOLE SODIUM 40 MG VIAL IVPUSH SCH ×2 (09:41→21:01)
[2020-07-18] MEDS: risperiDONE 2 MG TABLET PO SCH ×2 (09:41→21:01)
[2020-07-18 20:07] LABS: GLIADIN ANTIBODY IGA 8 units (0-19); GLIADIN ANTIBODY IGG 4 units (0-19); TRANSGLUTAMINASE IGG 3 U/mL (0-5)
[2020-07-18] MEDS: ATORVASTATIN CA 10 MG TABLET (FP) PO SCH (21:00)
[2020-07-18] MEDS: QUEtiapine FUMARATE 200 MG TABLET PO SCH (21:01)
[2020-07-19] MEDS: MORPHINE SULFATE 2 MG/ML VIAL IVPUSH PRN ×2 (08:43→17:53)
[2020-07-19 09:23] LABS: HEMATOCRIT 44.7 % (35.4-49); HEMOGLOBIN 14.9 GM/dL (11.7-16.9); MCH 28.4 pg (25.7-33.7); MCHC 33.3 g/dl (32.0-35.9); MEAN CELL VOLUME 85.2 fl (80-96); MEAN PLT VOLUME 9.2 fl (7.5-11.1); PLATELET COUNT 203 K/MM3 (134-434); RBC 5.24 M/mm3 (4.00-5.60); RDW 16.5 % (11.9-15.9); WHITE BLOOD COUNT 5.3 K/mm3 (4.0-10.0)
[2020-07-19] MEDS ORDERED: PT OWN MED DRAWER 7, Y5N ONE (09:56)
[2020-07-19 10:10] LABS: CALCIUM 9.1 mg/dL (8.5-10.1)
[2020-07-19 10:11] LABS: ALBUMIN 3.7 g/dl (3.4-5.0); BLOOD UREA NITROGEN 6.9 mg/dL (7-18); MAGNESIUM 1.9 mg/dL (1.8-2.4)
[2020-07-19 10:14] LABS: CREATININE 0.9 mg/dL (0.55-1.3); PHOSPHOROUS 3.1 mg/dL (2.5-4.9)
[2020-07-19 10:16] LABS: TOT PROT 7.5 g/dl (6.4-8.2)
[2020-07-19] MEDS: NICOTINE 7 MG/24 HOURS TOPICAL PATCH TD SCH (10:26)
[2020-07-19] MEDS: amLODIPine BESYLATE 10 MG TABLET (FP) PO SCH (10:26)
[2020-07-19] MEDS: MIRTAZAPINE 30 MG TABLET PO SCH (10:26)
[2020-07-19] MEDS: MULTIVITAMINS (DAILY MVI) TABLET (FP) PO SCH (10:26)
[2020-07-19] MEDS: FOLIC ACID 1 MG TABLET (FP) PO SCH (10:26)
[2020-07-19] MEDS: SERTRALINE HCL 50 MG TABLET (FP) PO SCH (10:26)
[2020-07-19] MEDS: LABETALOL HCL 200 MG TABLET (FP) PO PRN ×2 (10:26→22:24)
[2020-07-19] MEDS: ENOXAPARIN NA (PORCINE) 40 MG/0.4 ML DISP.SYRIN SQ SCH (10:27)
[2020-07-19] MEDS: THIAMINE HCL 100 MG TABLET (FP) PO SCH (10:27)
[2020-07-19] MEDS: risperiDONE 2 MG TABLET PO SCH ×2 (10:27→23:45)
[2020-07-19] MEDS: PANTOPRAZOLE SODIUM 40 MG VIAL IVPUSH SCH ×2 (10:27→22:06)
[2020-07-19] MEDS ORDERED: MORPHINE SULFATE 2 MG/ML VIAL IVPUSH ONE (13:28)
[2020-07-19] MEDS: ATORVASTATIN CA 10 MG TABLET (FP) PO SCH (22:05)
[2020-07-19] MEDS: QUEtiapine FUMARATE 200 MG TABLET PO SCH (22:06)
[2020-07-19] MEDS: KETOROLAC TROMETHAMINE 15 MG/ML VIAL IVPB PRN (22:24)
[2020-07-20] MEDS: MORPHINE SULFATE 2 MG/ML VIAL IVPUSH PRN ×2 (06:38→12:51)
[2020-07-20 08:52] LABS: HEMATOCRIT 43.9 % (35.4-49); HEMOGLOBIN 14.5 GM/dL (11.7-16.9); MCHC 32.9 g/dl (32.0-35.9); PLATELET COUNT 201 K/MM3 (134-434); RBC 5.17 M/mm3 (4.00-5.60); RDW 16.1 % (11.9-15.9)
[2020-07-20 09:07] LABS: POTASSIUM 3.9 mmol/L (3.5-5.1)
[2020-07-20 09:15] LABS: ALBUMIN 3.5 g/dl (3.4-5.0); BLOOD UREA NITROGEN 9.6 mg/dL (7-18)
[2020-07-20 09:16] LABS: BILIRUBIN,TOTAL 0.7 mg/dL (0.2-1); TOT PROT 7.3 g/dl (6.4-8.2)
[2020-07-20 09:18] LABS: CALCIUM 9.3 mg/dL (8.5-10.1); PHOSPHOROUS 3.6 mg/dL (2.5-4.9)
[2020-07-20] MEDS: PANTOPRAZOLE SODIUM 40 MG VIAL IVPUSH SCH (10:28)
[2020-07-20] MEDS: KETOROLAC TROMETHAMINE 15 MG/ML VIAL IVPB PRN (10:29)
[2020-07-20] MEDS: ENOXAPARIN NA (PORCINE) 40 MG/0.4 ML DISP.SYRIN SQ SCH (10:29)
[2020-07-20] MEDS: risperiDONE 2 MG TABLET PO SCH (10:30)
[2020-07-20] MEDS: FOLIC ACID 1 MG TABLET (FP) PO SCH (10:30)
[2020-07-20] MEDS: SERTRALINE HCL 50 MG TABLET (FP) PO SCH (10:30)
[2020-07-20] MEDS: THIAMINE HCL 100 MG TABLET (FP) PO SCH (10:30)
[2020-07-20] MEDS: MIRTAZAPINE 30 MG TABLET PO SCH (10:30)
[2020-07-20] MEDS: amLODIPine BESYLATE 10 MG TABLET (FP) PO SCH (10:30)
[2020-07-20] MEDS: MULTIVITAMINS (DAILY MVI) TABLET (FP) PO SCH (10:30)
[2020-07-20] MEDS: NICOTINE 7 MG/24 HOURS TOPICAL PATCH TD SCH (10:31)
[2020-07-20 15:36] VITALS: BP 106/72; PULSE 83; TEMP 98.1
[2020-07-22 16:08] LABS: TOTAL PROTEIN, URINE 5.6 mg/dL (Not Estab.)
== END 2020-07-20 16:43 | disposition home or self-care (01) | DRG 251 ==
LOC: JER 15:10 → JERBED 19:01 → J5S 07-17 03:01
PROVIDERS: ADMIT Internal Medicine; ATTEND Internal Medicine
DX: R10.84 Generalized abdominal pain (principal); I10 Essential (primary) hypertension; K21.9 Gastro-esophageal reflux disease without esophagitis; E11.9 Type 2 diabetes mellitus without complications; F17.210 Nicotine dependence, cigarettes, uncomplicated; T50.995A Adverse effect of other drugs, medicaments and biological substances, initial encounter; K76.0 Fatty (change of) liver, not elsewhere classified; M32.9 Systemic lupus erythematosus, unspecified; E78.5 Hyperlipidemia, unspecified
CPT/HCPCS: 36415; 80053; 82150; 82595; 82784; 82787; 82962; 83516; 83690; 83735; 84100; 84110; 84155; 84156; 84165; 84166; 84202; 84484; 85025; 85027; 85384; 85610; 85651; 85730; 86140; 86225; 86226; 86334; 86803; 93005; 93010; 99285-25; C9803; U0003

== ENCOUNTER 2020-07-24 19:46 | Inpatient (IN) | payer OTHER ==
[2020-07-24 19:53] VITALS: BMI 28.0
[2020-07-24] MEDS ORDERED: ONDANSETRON 4 MG/2 ML VIAL IVPUSH ONE (20:43)
[2020-07-24] MEDS ORDERED: LACTATED RINGERS SOLUTION 1000 ML INFUS.BAG IV ONE (20:43)
[2020-07-24] MEDS ORDERED: ACETAMINOPHEN 1000 MG/100 ML VIAL (NON FORMULARY) IVPB ONE (20:44)
[2020-07-24] MEDS ORDERED: morphine CARPU-JECT 4 MG/1 ML DISP.SYRIN IVPUSH ONE (20:47)
[2020-07-24 21:17] LABS: BASO % 0.5 % (0-2.0); EOS % 2.3 % (0-4.5); HEMATOCRIT 42.1 % (35.4-49); HEMOGLOBIN 14.2 GM/dL (11.7-16.9); LYMPH % 35.5 % (8-40); MCH 28.5 pg (25.7-33.7); MCHC 33.8 g/dl (32.0-35.9); MEAN CELL VOLUME 84.3 fl (80-96); MEAN PLT VOLUME 9.3 fl (7.5-11.1); MONO % 9.7 % (3.8-10.2); PLATELET COUNT 244 K/MM3 (134-434); RBC 4.99 M/mm3 (4.00-5.60); RDW 16.5 % (11.9-15.9)
[2020-07-24 21:23] LABS: INR 1.09 (0.83-1.09); PROTHROMBIN TIME (PATIENT) 13.2 SEC (9.7-13.0)
[2020-07-24] MEDS ORDERED: morphine SULFATE 4 MG/ML VIAL ONE (21:24)
[2020-07-24 21:25] LABS: ACTIVATED PTT 34.8 SECONDS (25.2-36.5)
[2020-07-24] MEDS ORDERED: ONDANSETRON 4 MG/2 ML VIAL ONE (21:25)
[2020-07-24] MEDS ORDERED: ACETAMINOPHEN INJECTION 100 ML IVPB ONE (21:25)
[2020-07-24 21:44] LABS: POTASSIUM 4.6 mmol/L (3.5-5.1)
[2020-07-24 21:47] LABS: CALCIUM 9.4 mg/dL (8.5-10.1)
[2020-07-24 21:48] LABS: ALBUMIN 3.9 g/dl (3.4-5.0); BLOOD UREA NITROGEN 13.4 mg/dL (7-18)
[2020-07-24 21:53] LABS: BILIRUBIN,TOTAL 0.8 mg/dL (0.2-1); TOT PROT 8.2 g/dl (6.4-8.2)
[2020-07-24] MEDS ORDERED: KETAMINE HCL 200 MG/20 ML VIAL IVPUSH ONE (22:08)
[2020-07-24] MEDS ORDERED: KETAMINE HCL 200 MG/20 ML VIAL ONE (22:15)
[2020-07-25] MEDS ORDERED: LACTATED RINGERS SOLUTION 1000 ML INFUS.BAG IV ONE (00:54)
[2020-07-25] MEDS ORDERED: METOCLOPRAMIDE HCL INJECTION 10 MG/2 ML VIAL IVPUSH ONE (00:54)
[2020-07-25] MEDS ORDERED: METOCLOPRAMIDE HCL INJECTION 10 MG/2 ML VIAL ONE (01:49)
[2020-07-25] MEDS ORDERED: ACETAMINOPHEN 1000 MG/100 ML VIAL (NON FORMULARY) IVPB ONE (04:45)
[2020-07-25] MEDS ORDERED: ACETAMINOPHEN INJECTION 100 ML IVPB ONE (04:54)
[2020-07-25] MEDS ORDERED: PANTOPRAZOLE 40 MG TABLET PO ONE (05:11)
[2020-07-25] MEDS ORDERED: SODIUM CHLORIDE 1,000 ML IV SCH (05:15)
[2020-07-25] MEDS ORDERED: METOCLOPRAMIDE HCL INJECTION 10 MG/2 ML VIAL IVPUSH PRN (05:30)
[2020-07-25] MEDS ORDERED: oxyCODONE HCL 5 MG TABLET PO PRN (05:43)
[2020-07-25] MEDS ORDERED: oxyCODONE HCL 5 MG TABLET PO SCH (05:45)
[2020-07-25 07:47] VITALS: BP 135/71; PULSE 68; TEMP 98.2
[2020-07-25] MEDS ORDERED: oxyCODONE HCL 5 MG TABLET ONE (08:38)
[2020-07-25 10:00] LABS: METHADONE, UR NEGATIVE ng/ml (CUTOFF=300); URINE BENZODIAZEPINES NEGATIVE ng/ml (CUTOFF=200)
[2020-07-25] MEDS ORDERED: MIRTAZAPINE 30 MG TABLET PO SCH (10:00)
[2020-07-25] MEDS ORDERED: amLODIPine BESYLATE 5 MG TABLET (FP) PO SCH (10:00)
[2020-07-25] MEDS ORDERED: LABETALOL HCL 100 MG TABLET (FP) PO SCH (10:00)
[2020-07-25] MEDS ORDERED: MULTIVITAMINS (DAILY MVI) TABLET (FP) PO SCH (10:00)
[2020-07-25] MEDS ORDERED: PANTOPRAZOLE 40 MG TABLET PO SCH ×2 (10:00)
[2020-07-25] MEDS ORDERED: risperiDONE 2 MG TABLET PO SCH (10:00)
[2020-07-25 10:01] LABS: PHENCYCLIDINE,URINE NEGATIVE ng/ml (CUTOFF=25)
[2020-07-25 10:03] LABS: URINE BARBITURATES NEGATIVE ng/ml (CUTOFF=200)
[2020-07-25 10:04] LABS: COCAINE, UR NEGATIVE ng/ml (CUTOFF=300); URINE AMPHETAMINES NEGATIVE ng/ml (CUTOFF=500)
[2020-07-25 10:09] LABS: OPIATES, URI POSITIVE ng/ml (CUTOFF=300)
[2020-07-25] MEDS ORDERED: QUEtiapine FUMARATE 200 MG TABLET PO SCH (22:00)
[2020-07-25] MEDS ORDERED: ATORVASTATIN CA 10 MG TABLET (FP) PO SCH (22:00)
== END 2020-07-25 11:50 | disposition left against medical advice (07) | DRG 251 ==
LOC: JER 19:46 → JERBED 07-25 04:14
PROVIDERS: ADMIT Hospitalist
DX: R10.9 Unspecified abdominal pain (principal); K29.70 Gastritis, unspecified, without bleeding; I10 Essential (primary) hypertension; E78.5 Hyperlipidemia, unspecified; M32.9 Systemic lupus erythematosus, unspecified; K21.9 Gastro-esophageal reflux disease without esophagitis; E11.9 Type 2 diabetes mellitus without complications; Z86.73 Personal history of transient ischemic attack (TIA), and cerebral infarction without residual deficits; E87.1 Hypo-osmolality and hyponatremia
CPT/HCPCS: 36415; 74176-TC; 80053; 80307; 83690; 84478; 85025; 85610; 85730; 99285-25; C9803; J0131; U0003

== ENCOUNTER 2021-11-27 21:26 | Emergency (ER) | payer OTHER ==
[2021-11-27 21:45] VITALS: BP 131/87; PULSE 96; TEMP 98.2; BMI 24.6
[2021-11-27] MEDS ORDERED: KETOROLAC TROMETHAMINE 30 MG/1 ML VIAL IM ONE (22:50)
[2021-11-27] MEDS ORDERED: diazePAM 5 MG TABLET PO ONE (22:51)
[2021-11-27] MEDS ORDERED: diazePAM 5 MG TABLET ONE (23:10)
[2021-11-27] MEDS ORDERED: KETOROLAC TROMETHAMINE 30 MG/1 ML VIAL ONE (23:10)
== END 2021-11-27 23:17 | disposition home or self-care (01) ==
LOC: JER 21:26
PROC: 3E023GC Introduction of Other Therapeutic Substance into Muscle, Percutaneous Approach (ICD-10-PCS; principal; 2021-11-27)
DX: M54.41 Lumbago with sciatica, right side (principal)
CPT/HCPCS: 99284-25

== ENCOUNTER 2024-05-06 01:32 | Emergency (ER) | payer OTHER ==
[2024-05-06 01:44] VITALS: BMI 25.8
[2024-05-06] MEDS: SODIUM CHLORIDE 0.9% 500 ML INFUS.BAG IV ONE (02:41)
[2024-05-06 03:10] LABS: BASO % 0.3 % (0-2.0); EOS % 1.7 % (0-4.5); HEMATOCRIT 39.5 % (35.4-49); HEMOGLOBIN 13.3 GM/dL (11.7-16.9); LYMPH % 22.1 % (8-40); MCH 28.5 pg (25.7-33.7); MCHC 33.6 g/dl (32.0-35.9); MEAN CELL VOLUME 84.8 fl (80-96); MEAN PLT VOLUME 8.5 fl (7.5-11.1); MONO % 7.6 % (3.8-10.2); NEUT % 68.3 % (42.8-82.8); PLATELET COUNT 202 10^3/uL (134-434); RBC 4.66 M/mm3 (4.00-5.60); RDW 15.2 % (11.9-15.9); WHITE BLOOD COUNT 5.3 K/mm3 (4.0-10.0)
[2024-05-06 03:27] LABS: POTASSIUM 3.5 mmol/L (3.5-5.1)
[2024-05-06 03:39] LABS: ALBUMIN 3.8 g/dl (3.4-5.0)
[2024-05-06 03:44] LABS: BILIRUBIN,TOTAL 0.4 mg/dL (0.2-1); TOT PROT 7.5 g/dl (6.4-8.2)
[2024-05-06 04:14] LABS: BLOOD UREA NITROGEN 16.6 mg/dL (7-18); MAGNESIUM 1.9 mg/dL (1.8-2.4)
[2024-05-06 06:37] VITALS: BP 125/77; PULSE 62; RESP 18; TEMP 97.7
== END 2024-05-06 06:31 | disposition home or self-care (01) ==
LOC: JER 01:32
DX: R42 Dizziness and giddiness (principal); R53.1 Weakness
CPT/HCPCS: 36415; 70450-TC; 71046-TC-FY; 80053; 83735; 84484; 85025; 93005; 93010; 99285-25